=== PATIENT | male | born 1975 | race African-American/Black ===

== ENCOUNTER 2018-05-04 23:41 | Inpatient (IN) ==
[2018-05-04] MEDS ORDERED: Vancomycin Inj 1,000 MG in Sodium Chlor 0.9% Inj 250 ML IV.SIG STA (23:42)
[2018-05-04] MEDS ORDERED: Piperacil/Tazo 4.5 GM Premix 4.5 GM/100 ML BAG IV.SIG STA (23:42)
[2018-05-04] MEDS ORDERED: Acetaminophen 650 MG Supp RECTAL ONE (23:42)
[2018-05-04] MEDS ORDERED: Sod Chloride 0.9% Inj 700 ML IV.SIG SCH (23:45)
[2018-05-04] MEDS ORDERED: Sod Chloride 0.9% Inj 1,000 ML IV.SIG SCH (23:45)
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
[2018-05-05] MEDS: Sod Chloride 0.9% Inj 1,000 ML IV.SIG SCH ×2 (00:15→03:27)
[2018-05-05 00:18] LABS: Baso # (Auto) 0.1 th/mm3 (0.0-0.2); Baso % (Auto) 0.4 % (0.0-2.0); Hematocrit 46.3 % (39.0-51.0); Hemoglobin 15.2 gm/dL (13.0-17.0); Lymph # (Auto) 1.1 th/mm3 (1.0-4.8); Lymph % (Auto) 5.3 % (9.0-44.0); Mean Corpuscular HGB Conc 32.9 % (32.0-36.0); Mean Corpuscular Hemoglobin 30.8 pg (27.0-34.0); Mean Corpuscular Volume 93.7 fL (80.0-100.0); Mean Platelet Volume 8.4 fL (7.0-11.0); Mono % (Auto) 4.8 % (0.0-8.0); Neut # (Auto) 19.1 th/mm3 (1.8-7.7); Neut % (Auto) 89.5 % (16.0-70.0); Platelet Count 283 th/mm3 (150-450); Red Blood Count 4.94 mil/mm3 (4.50-5.90); Red Cell Distribution Width 14.6 % (11.6-17.2); White Blood Count 21.4 th/mm3 (4.0-11.0)
[2018-05-05 00:25] LABS: Albumin 4.5 g/dL (3.4-5.0); Anion Gap 10 meq/L (5-15); Aspartate Aminotransferase 128 U/L (15-37); Blood Urea Nitrogen 11 mg/dL (7-18); Calcium 8.9 mg/dL (8.5-10.1); Carbon Dioxide 18.6 meq/L (21.0-32.0); Chloride 108 meq/L (98-107); Glomerular Filtration Rate 51 mL/min (>89); Glucose,Random 101 mg/dL (74-106); Lipase 173 U/L (73-393); Potassium 4.3 meq/L (3.5-5.1); Sodium 137 meq/L (136-145)
[2018-05-05 00:28] LABS: Alanine Aminotransferase 58 U/L (12-78); Alkaline Phosphatase 116 U/L (45-117); Phosphorus 3.2 mg/dL (2.5-4.9); Total Protein 9.2 g/dL (6.4-8.2); Troponin I 0.06 ng/mL (0.02-0.05)
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
[2018-05-05] MEDS ORDERED: Etomidate Inj 40 MG/20 ML Vial IV.PUSH ONE ×2 (01:06→01:08)
[2018-05-05 01:10] LABS: Amphetamine Screen,Urine Neg (Neg); Barbiturate Screen,Urine Neg (Neg); Cannabinoid Screen,Urine Pos (Neg); Cocaine Screen,Urine Neg (Neg)
[2018-05-05 01:11] LABS: Opiate Screen,Urine Neg (Neg)
[2018-05-05 01:48] LABS: Creatine Kinase 9518 U/L (39-308)
[2018-05-05] MEDS: Propofol 1000 mg/100 ml Inj 1,000 MG/100 ML BOTTLE IV.CONT PRN ×3 (02:00→23:22)
[2018-05-05 02:08] LABS: CKMB Percent 0.2 % (0.0-4.0); Creatine Kinase MB 20.9 ng/mL (0.5-3.6)
[2018-05-05] MEDS ORDERED: Sod Chloride 0.9% Inj 1,000 ML IV.SIG SCH (02:30)
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
[2018-05-05 03:01] LABS: ABG Base Excess -6.4 mmol/L (-2-2); ABG PCO2 35 mmHg (38-42); ABG PO2 86 mmHg (61-120)
[2018-05-05] MEDS ORDERED: Midazolam 50 MG/50 ML Inj 50 MG/50 ML BAG IV.CONT ONE (03:31)
[2018-05-05] MEDS: Midazolam 50 MG/50 ML Inj 50 MG/50 ML BAG IV.CONT PRN ×3 (03:45→23:21)
[2018-05-05 03:59] LABS: Amorphous Sediment,Urine Occasional /hpf; Bilirubin,Urine Negative (Negative); Clarity,Urine Turbid (Clear); Color,Urine Yellow (Yellw/Straw); Glucose,Urine (UA) Negative (Negative); Leukocyte Esterase,Urine Negative (Negative); Nitrite,Urine Negative (Negative); Specific Gravity,Urine 1.021 (1.002-1.035)
--- NOTE | 2018-05-05 04:11 | CT ---
EXAM DATE: 05/05/2018 1:08 AM EDT AGE/SEX: 89 years / Male INDICATIONS: Respiratory distress. CLINICAL DATA: This is the patient's initial encounter. Patient reports that signs and symptoms have been present for 1 day and indicates a pain score of Nonresponsive. MEDICAL/SURGICAL HISTORY: Non-responsive. Non-responsive. RADIATION DOSE: 5.1 CTDI (mGy) ; Combined studies COMPARISON: No prior exams available for comparison. TECHNIQUE: Multiple contiguous axial images were obtained through the chest during bolus infusion of 96 ml Omnipaque 350 (iohexol) nonionic water-soluble contrast as a cumulative dose for multiple exa ms. Images were obtained in suspended respiration using multiple row detector helical technique. U sing automated exposure control and adjustment of the mA and/or kV according to patient size, radiati on dose was kept as low as reasonably achievable to obtain optimal diagnostic quality images. DICOM format image data is available electronically for review and comparison. FINDINGS: There is left lower lobe atelectasis versus contusion. There is no evidence of pneumothorax. No pulmo nary nodules are identified. Examination of the mediastinum demonstrates no abnormally enlarged lymph nodes by CT criteria. No axi llary or hilar abnormalities are identified. Coronary artery calcifications are not present. There is direct origin of the left vertebral artery from the arch which can be seen as a normal variation. Th ere is no evidence of acute fracture. CONCLUSION: Left lower lobe atelectasis versus contusion. There is no evidence of pneumothorax. Electronically signed by: Klever Tucker MD 05/05/2018 4:10 AM EDT
--- NOTE | 2018-05-05 04:13 | CT ---
EXAM DATE: 05/05/2018 1:08 AM EDT AGE/SEX: 89 years / Male INDICATIONS: Abdominal pain. CLINICAL DATA: This is the patient's initial encounter. Patient reports that signs and symptoms have been present for 1 day and indicates a pain score of Nonresponsive. MEDICAL/SURGICAL HISTORY: Non-responsive. Non-responsive. ORAL CONTRAST: No oral contrast ingested. RADIATION DOSE: 5.1 CTDI (mGy) ; Combined studies COMPARISON: No prior exams available for comparison. TECHNIQUE: Multiple contiguous axial images were obtained through the abdomen and pelvis following b olus infusion of 96 ml Omnipaque 350 (iohexol) nonionic water-soluble contrast as a cumulative dose for multiple exams. No oral contrast ingested. Using automated exposure control and adjustment of t he mA and/or kV according to patient size, radiation dose was kept as low as reasonably achievable to obtain optimal diagnostic quality images. DICOM format image data is available electronically for r eview and comparison. FINDINGS: There is left lower lobe atelectasis versus contusion. The liver and spleen are free of focal defects . The gallbladder and pancreas demonstrate no abnormality. The adrenal glands are normal. The kidneys demonstrate no evidence of solid renal mass or hydronephrosis. No free fluid or abdominal masses are identified. No para-aortic adenopathy is seen. Examination of the pelvis demonstrates no evidence of free fluid or pelvic mass. No abnormally enlarg ed inguinal or retroperitoneal lymph nodes are present. The bladder is unremarkable. CONCLUSION: No evidence of acute abdominal or pelvic process. No masses are identified. Electronically signed by: Klever Tucker MD 05/05/2018 4:12 AM EDT
--- NOTE | 2018-05-05 04:15 | CT ---
EXAM DATE: 05/05/2018 12:14 AM EDT AGE/SEX: 89 years / Male INDICATIONS: Altered mental status. Patient found unresponsive. CLINICAL DATA: This is the patient's initial encounter. Patient reports that signs and symptoms have been present for 1 day and indicates a pain score of Nonresponsive. MEDICAL/SURGICAL HISTORY: Non-responsive. Non-responsive. RADIATION DOSE: 61.36 CTDI (mGy) COMPARISON: No prior exams available for comparison. TECHNIQUE: CT of the head without contrast. Using automated exposure control and adjustment of the mA and/or kV according to patient size, radiation dose was kept as low as reasonably achievable to ob tain optimal diagnostic quality images. DICOM format image data is available electronically for revi ew and comparison. FINDINGS: Noncontrast axial head CT demonstrates the ventricles to be normal in size and configuration with a n ormal sulcal pattern. No acute intracranial hemorrhage, acute cortical infarction, mass or midline sh ift is seen. Posterior fossa structures are unremarkable. Bone windows are unremarkable. CONCLUSION: No evidence of acute intracranial pathology. No masses are identified. . Electronically signed by: Klever Tucker MD 05/05/2018 4:13 AM EDT
[2018-05-05] MEDS ORDERED: Bisacodyl 10 MG Supp RECTAL PRN (05:49)
[2018-05-05] MEDS ORDERED: Acetaminophen 325 MG Tablet PO PRN (05:49)
[2018-05-05] MEDS ORDERED: Morphine Inj 4 MG/ML Vial IV.PUSH PRN (05:49)
--- NOTE | 2018-05-05 05:55 | P.HPCC ---
History of Present Illness Primary Care Physician: UNKNOWN History of Present Illness: Middle-aged male arrives by EMS. Wellbeing check was called. FD knocked the front door down. Patient was found diaphoretic on his bed. EMS reports altered mental status on scene with GCS of 13 (E4, V4, M5). Pt unable to provide detailed history here 2/2 AMS. Axillary temp 101 per EMS. During my exam the patient had labored breathing and seemed to be unable to protect an airway and was intubated for an airway protection by ED attending. Inpatient Certification: I certify that the inpatient services were ordered in accordance with Medicare regulations governing the order. This includes certification that hospital inpatient services are reasonable and necessary and in the case of services not specified as inpatient-only under 42 CFR 419.22(n), that they are appropriately provided as inpatient services in accordance to with the 2-midnight benchmark under 43 CFR 412.3(e) Estimated Total Length of Stay (Days): 5 Plans for Post Hospital Care: Not yet determined Review of Systems unobtainable due to endotracheal tube, unobtainable due to mental status PMFSH - History History Provided By: Chief Informatics Officer / EMT - Medical / Surgical Hx Neg / Unobtainable Surgical History: Unable to Obtain - Medical History Medical History: Medical History (Last Reviewed 05/05/18 @ 13:16 by Soraya Bhatti) Seizure - Tobacco History Smoking Status: Cognitive impairment - Alcohol History How Often Do You Have a Drink Containing Alcohol: Unable to Obtain - Substance Use History Substance History: Unable to Obtain - Immunization History Tetanus Immunization: Unable to Assess Medications and Allergies Active Medications: Active Medications Acetaminophen (Tylenol) 650 mg PO Q6H PRN PRN Reason: PAIN 1-10 AND/OR FEVER >101F Al Hydroxide/Mg Hydroxide (Milk Of [place] Liq) 30 ml PO Q12H PRN PRN Reason: Mild Constipation Albuterol (Duoneb Neb (Prn)) 1 ampul NEB Q2HR NEB PRN PRN Reason: WHEEZING Albuterol (Duoneb Neb (Prn)) 1 ampul NEB Q6HR NEB ELMO Bisacodyl (Dulcolax Supp) 10 mg RECTAL DAILY PRN PRN Reason: SEVERE CONSITIPATION Chlorhexidine Gluconate (Chlorhexidine 2% Cloth) 3 pack TOPICAL DAILY@0400 [facility] Stop: 05/11/18 03:59 Chlorhexidine Gluconate (Chlorhexidine 2% Cloth) 3 pack TOPICAL DAILY@0400 PRN PRN Reason: Extra cloth needed Stop: 05/11/18 03:59 Enoxaparin Sodium (Lovenox Inj) 40 mg SQ Q24H ELMO Famotidine (Pepcid) 20 mg PO BID ELMO Famotidine (Pepcid Pf Inj) 20 mg IV.PUSH Q12HR ELMO Famotidine (Pepcid Pf Inj) 20 mg IV.PUSH Q12HR ELMO Sodium Chloride (Ns Inj) 1,000 mls @ 0 mls/hr IV.SIG .Q0M ELMO Last Infusion: 05/05/18 04:35 Dose: Infused Sodium Chloride (Ns Inj) 700 mls @ 0 mls/hr IV.SIG .Q0M ELMO Last Infusion: 05/05/18 01:40 Dose: Infused Sodium Chloride (Ns Inj) 1,000 mls @ 0 mls/hr IV.SIG .Q0M ELMO Last Infusion: 05/05/18 01:15 Dose: Infused Propofol (Diprivan 1000 Mg/100 Ml Inj) 1,000 mg in 100 mls @ 1.905 mls/hr IV.CONT TITRATE PRN; Protocol PRN Reason: Per Protocol Last Titration: 05/05/18 02:28 Dose: 50 mcg/kg/min, 19.05 mls/hr Sodium Chloride (Ns Inj) 1,000 mls @ 0 mls/hr IV.SIG BOLUS ELMO Stop: 05/06/18 02:31 Midazolam HCl (Versed Inj) 50 mg in 50 mls @ 2 mls/hr IV.CONT TITRATE PRN; Protocol PRN Reason: Per Protocol Last Titration: 05/05/18 04:14 Dose: 4 mg/hr, 4 mls/hr Sodium Chloride (Ns Inj) 1,000 mls @ 154 mls/hr IV.CONT .Q6H30M ELMO Lactulose (Lactulose Liq) 30 ml PO DAILY PRN PRN Reason: SEVERE CONSITIPATION Lorazepam (Ativan Inj) 1 mg IV.PUSH Q1H PRN PRN Reason: Agitation/sedation Miscellaneous Medication () 1 each OROPHARYNG 0000,0400,1200,1600 ELMO Ondansetron HCl (Zofran Inj) 4 mg IV.PUSH Q6H PRN PRN Reason: NAUSEA OR VOMITING Allergies Allergy/AdvReac Type Severity Reaction Status Date / Time No Allergy Information Allergy Unverified 05/04/18 23:42 Available Home Medications Medication Instructions Recorded Confirmed Type Unable to Obtain Home Meds 05/05/18 05/05/18 History Results - Labs CBC & Chem 7: 05/05/18 11:15 05/05/18 11:15 Labs: Short CBC 05/04/18 Range/Units 23:50 WBC 21.4 H (4.0-11.0) th/mm3 Hgb 15.2 (13.0-17.0) gm/dL Hct 46.3 (39.0-51.0) % Plt Count 283 (150-450) th/mm3 BMP 05/04/18 23:50 Sodium 137 Potassium 4.3 Chloride 108 H Carbon Dioxide 18.6 L BUN 11 Creatinine 1.23 Calcium 8.9 Cardiac Enzymes 05/04/18 Range/Units 23:50 Total Creatine Kinase 9518 H (39-308) U/L CK-MB (CK-2) 20.9 H (0.5-3.6) ng/mL Troponin I 0.06 H (0.02-0.05) ng/mL Liver Function 05/04/18 Range/Units 23:50 Total Bilirubin 0.6 (0.2-1.0) mg/dL AST 128 H (15-37) U/L ALT 58 (12-78) U/L Alkaline Phosphatase 116 (45-117) U/L Albumin 4.5 (3.4-5.0) g/dL Urine 05/05/18 Range/Units 00:30 Urine Color Yellow (Yellw/Straw) Urine Clarity Turbid H (Clear) Urine pH 5.0 (5.0-8.5) Ur Specific [place] 1.021 (1.002-1.035) Urine Protein 100 H (Neg-Trace) mg/dL Urine Glucose (UA) Negative (Negative) mg/dL - Imaging Impressions Chest X-Ray 05/04/18 23:43 CONCLUSION: No acute cardiopulmonary disease. Head CT 05/05/18 00:00 CONCLUSION: No evidence of acute intracranial pathology. No masses are identified. . Abdomen/Pelvis CT 05/05/18 00:59 CONCLUSION: No evidence of acute abdominal or pelvic process. No masses are identified. Chest CT 05/05/18 00:59 CONCLUSION: Left lower lobe atelectasis versus contusion. There is no evidence of pneumothorax. Chest X-Ray 05/05/18 01:30 CONCLUSION: Satisfactory position of endotracheal tube as above. Left lower lobe atelectasis versus contusion Exam Vital signs: Vital Signs 05/04/18 23:43 05/05/18 00:50 05/05/18 00:58 Temperature 102.1 F H 99 F Pulse Rate 116 H 116 H 123 H Respiratory Rate 20 20 Blood Pressure 144/71 H 145/68 H Pulse Oximetry 100 100 100 05/05/18 01:22 05/05/18 05:08 Temperature 101.1 F H Pulse Rate 96 H Respiratory Rate 14 16 Blood Pressure 130/65 Pulse Oximetry 100 100 Intake & Output 05/04/18 05/04/18 05/05/18 06:59 18:59 06:59 Intake Total 4150 / 4150 Balance 4150 / 4150 Weight 63.503 kg Intake: IV 4150 / 4150 Zosyn 4.5 GM Premix 4.5 gm In 100 / 100 100 ml @ 200 mls/hr IV.SIG STAT STA Rx#:[id number] NS Inj 1,000 ML @ Wide Open IV. 3700 / 3700 SIG .Q0M ELMO Rx#:[id number] Vancomycin Inj 1,000 MG In NS 250 / 250 Inj 250 ML @ 250 mls/hr IV.SIG STAT STA Rx#:[id number] Rocephin Inj 1,000 MG In NS Inj 100 / 100 100 ML @ 200 mls/hr IV.SIG ONCE ONE Rx#:[id number] - Constitutional moderate distress, somnolent, obtunded - Routine HEENT Exam Head: Present: normocephalic, atraumatic Eye: Present: PERRL ENT: Present: mucous membranes moist - Routine Neck Exam Present: supple. Absent: JVD, carotid bruit - Routine Chest/Breast/Axilla Exam Chest wall: Absent: tenderness, mass, pacemaker - Routine Respiratory Exam Present: patient mechanically ventilated, rhonchi, crackles. Absent: stridor, wheezes - Routine Cardiovascular Exam Present: RRR, S1, S2 - Routine Abdominal Exam Present: soft, normoactive bowel sounds. Absent: tenderness, distended - Routine Extremities Exam Absent: cyanosis, clubbing, edema - Routine Skin Exam Present: intact. Absent: cyanosis, erythema - Routine Neurological Exam Present: altered mental status, moving all extremities Septic Shock Reassessment Septic shock perfusion: reassessment completed Caprini VTE Risk Assessment Caprini VTE Risk Assessment: Moderate/High Risk (score >= 2) Caprini Risk Assessment Model: Point Value = 1 Point Value = 2 Point Value = 3 Point Value = 5 Age 41-60 Minor surgery BMI > 25 kg/m2 Swollen legs Varicose veins or History of unexplained or recurrent spontaneous Oral contraceptives or hormone replacement Sepsis (< 1 month) Serious lung disease, including pneumonia (< 1 month) Abnormal pulmonary function Acute myocardial infarction Congestive heart failure (< 1 month) History of inflammatory bowel disease Medical patient at bed rest Age 61-74 Arthroscopic surgery Major open surgery (> 45 min) Laparoscopic surgery (> 45 min) Malignancy Confined to bed (> 72 hours) Immobilizing plaster cast Central venous access Age >= 75 History of VTE Family history of VTE Factor V Leiden Prothrombin [id number] Lupus anticoagulant Anticardiolipin antibodies Elevated serum homocysteine Heparin-induced thrombocytopenia Other congenital or acquired thrombophilia Stroke (< 1 month) Elective arthroplasty Hip, pelvis, or leg fracture Acute spinal cord injury (< 1 month) Prophylaxis Regimen: Total Risk Factor Score Risk Level Prophylaxis Regimen 0-1 Low Early ambulation 2 Moderate Order ONE of the following: *Sequential Compression Device (SCD) *Heparin 5000 units SQ BID 3-4 Higher Order ONE of the following medications: *Heparin 5000 units SQ TID *Enoxaparin/Lovenox 40 mg SQ daily (WT < 150 kg, CrCl > 30 mL/min) *Enoxaparin/Lovenox 30 mg SQ daily (WT < 150 kg, CrCl > 10-29 mL/min) *Enoxaparin/Lovenox 30 mg SQ BID (WT < 150 kg, CrCl > 30 mL/min) AND/OR *Sequential Compression Device (SCD) 5 or more Highest Order ONE of the following medications: *Heparin 5000 units SQ TID (Preferred with Epidurals) *Enoxaparin/Lovenox 40 mg SQ daily (WT < 150 kg, CrCl > 30 mL/min) *Enoxaparin/Lovenox 30 mg SQ daily (WT < 150 kg, CrCl > 10-29 mL/min) *Enoxaparin/Lovenox 30 mg SQ BID (WT < 150 kg, CrCl > 30 mL/min) AND *Sequential Compression Device (SCD) Assessment and Plan - Assessment and Plan Plan: Respiratory failure -Intubated for an airway protection -No weaning until neurologically improved -Vent bundle -DuoNeb's as needed Pneumonia -Community-acquired -Zosyn/azithromycin -Follow-up cultures and de-escalate per sensitivity Altered mental status -SIRS -CT head negative -Drug screen positive only 4 cannabis -LP serology pending DVT GI prophylaxis -Teds SCDs -Subcu heparin -Pepcid 35 minutes of critical care
[2018-05-05] MEDS: Piperacil/Tazo 4.5 GM Premix 4.5 GM/100 ML BAG IV.SIG SCH ×4 (06:00→23:20)
[2018-05-05] MEDS ORDERED: Sod Chloride 0.9% Inj 1,000 ML IV.CONT SCH (06:00)
[2018-05-05] MEDS: Enoxaparin Inj 40 MG/0.4 ML Syringe SQ SCH (06:13)
[2018-05-05] MEDS: Azithromycin Inj 500 MG in Sodium Chlor 0.9% Inj 250 ML IV.SIG SCH (06:28)
[2018-05-05 07:12] LABS: Lymphocytes, CSF 0 %; Monocytes,CSF 1 %; Neutrophils,CSF 99 %; RBC on Tube 4 0 /mm3
[2018-05-05] MEDS ORDERED: Famotidine PF Inj 20 MG/2 ML Vial IV.PUSH SCH ×2 (09:00)
[2018-05-05] MEDS: Senna/Docusate Sodium 8.6/50 MG Tablet PO SCH ×2 (10:06→20:44)
[2018-05-05] MEDS: Chlorhexidine 0.12% Oral Kit 15 ML UDC OROPHARYNG SCH ×2 (10:06→20:44)
[2018-05-05] MEDS: Famotidine 20 MG Tablet PO SCH ×2 (10:06→20:44)
--- NOTE | 2018-05-05 11:19 | MB ---
cc: Coni Pike MD DATE: 05/05/2018 REASON FOR CONSULTATION: Change in mental status, possible meningitis. HISTORY OF PRESENT ILLNESS: This is a middle-aged male who comes in after being found down after a wellness check, brought in, intubated for airway protection, found to have axillary temperature of 101 per EMS. He had some labored breathing, hence intubated. PAST MEDICAL HISTORY: Really unknown, but we did find a picture, driver lifter of sanitation truck's license, and his name apparently is Js Portillo with date of 1975. He has a remote history of seizures. Other than that, we are unclear as far as other medical issues. PHYSICAL EXAMINATION: VITAL SIGNS: His temperature is currently 100.4, pulse 98, respiratory rate 16, blood pressure 128/69, saturating at 100%, FiO2 of 60%. GENERAL: Sedated. Pinpoint pupils. No response to noxious stimuli. No withdrawal to painful stimuli, does not follow any commands purposefully. LABORATORY DATA: Reviewed. CK is 9518, TSH is normal. CO2 is 18.6, sodium 137, AST 128, ALT 58. CBC: White count 21.4, 89.5% neutrophils. Urine: Turbid, cultures not indicated. LP shows 539 white cells in tube 4, 46.6 protein. PCR DNA for herpes is pending. Serum meningitides is pending as well. Serology is pending. Tox screen is positive for cannabinoids. Microbiology cultures are pending. His Gram stain shows many white cells, no organisms. ASSESSMENT AND PLAN: Status post change in mental status, possible meningitis, history of possible seizure. The patient just had an EEG. We will get that report. I am going to put him on Keppra 500 mg twice a day IV. Continue antibiotics as doing. Currently, he is on Zosyn. He was given Rocephin. He was also given vancomycin. We will defer any treatment options as well as antibiotic change to infectious disease. We will continue current care per neurology and make further recommendations as ordered. Going back into an old chart, he had a normal EEG and MRI back in 09/2016. Coni Pike MD DF/ts , 10:55 AM , 11:04 AM
[2018-05-05 11:47] LABS: Baso % (Auto) 0.3 % (0.0-2.0); Eos % (Auto) 0.1 % (0.0-4.0); Hematocrit 39.9 % (39.0-51.0); Hemoglobin 13.3 gm/dL (13.0-17.0); Lymph # (Auto) 1.4 th/mm3 (1.0-4.8); Lymph % (Auto) 11.8 % (9.0-44.0); Mean Corpuscular HGB Conc 33.3 % (32.0-36.0); Mean Corpuscular Hemoglobin 31.2 pg (27.0-34.0); Mean Corpuscular Volume 93.7 fL (80.0-100.0); Mean Platelet Volume 8.4 fL (7.0-11.0); Mono # (Auto) 0.8 th/mm3 (0.0-0.9); Mono % (Auto) 6.4 % (0.0-8.0); Neut % (Auto) 81.4 % (16.0-70.0); Platelet Count 190 th/mm3 (150-450); Red Blood Count 4.25 mil/mm3 (4.50-5.90); Red Cell Distribution Width 14.9 % (11.6-17.2); White Blood Count 12.2 th/mm3 (4.0-11.0)
[2018-05-05] MEDS: Sodium Bicarbonate 8.4% Inj 150 MEQ in Water for Inj, Sterile 850 ML IV.CONT SCH ×3 (12:04→23:21)
[2018-05-05 12:10] LABS: Alanine Aminotransferase 88 U/L (12-78); Albumin 3.2 g/dL (3.4-5.0); Anion Gap 8 meq/L (5-15); Aspartate Aminotransferase 377 U/L (15-37); Blood Urea Nitrogen 7 mg/dL (7-18); Calcium 7.5 mg/dL (8.5-10.1); Carbon Dioxide 18.8 meq/L (21.0-32.0); Chloride 113 meq/L (98-107); Glomerular Filtration Rate Greater Than 89 mL/min (>89); Glucose,Random 76 mg/dL (74-106); Magnesium 2.1 mg/dL (1.5-2.5); Phosphorus 2.3 mg/dL (2.5-4.9); Potassium 3.4 meq/L (3.5-5.1); Sodium 140 meq/L (136-145)
[2018-05-05 12:13] LABS: Alkaline Phosphatase 83 U/L (45-117); Total Protein 7.3 g/dL (6.4-8.2)
[2018-05-05] MEDS: Oral Hygiene Kit OROPHARYNG SCH ×3 (13:14→23:20)
--- NOTE | 2018-05-05 14:11 | ECG ---
Date Performed: 05/05/2018 Time Performed: 05:29:55 PTAGE: 89 years EKG: Sinus rhythm VOLTAGE CRITERIA FOR LVH ABNORMAL ECG NO PREVIOUS TRACING DOCTOR: Twin Yadav M.D. Interpretating Date/Time 05/05/2018 14:10:16
--- NOTE | 2018-05-05 21:32 | MG ---
cc: Maury Kapoor MD EEG RECORD: [id number] Intubated, on Diprivan, Versed. Delta with theta spindle bursts occurring, high frequency artifact bilateral frontotemporal region. Occasional frontal sharp transients. Limited driving with photic stimulation, sharply contoured theta bursts with inter burst 1-2 Hz delta activity 230 microvolts. Single lead EKG showing sinus rhythm. INTERPRETATION: Moderate encephalopathy. No active seizures. Clinical correlation. Maury Kapoor MD MG/ct/do , 08:27 PM , 08:30 PM
[2018-05-06] MEDS: Oral Hygiene Kit OROPHARYNG SCH ×4 (03:04→23:07)
[2018-05-06] MEDS: Chlorhexidine Gluconate 2% 1 Pack (2 Cloths) TOPICAL SCH (03:04)
[2018-05-06] MEDS ORDERED: Chlorhexidine Gluconate 2% 1 Pack (2 Cloths) TOPICAL PRN (04:00)
[2018-05-06 04:49] LABS: Baso # (Auto) 0.1 th/mm3 (0.0-0.2); Baso % (Auto) 0.5 % (0.0-2.0); Eos % (Auto) 0.2 % (0.0-4.0); Hematocrit 37.1 % (39.0-51.0); Lymph # (Auto) 1.1 th/mm3 (1.0-4.8); Mean Corpuscular HGB Conc 35.2 % (32.0-36.0); Mean Corpuscular Hemoglobin 31.8 pg (27.0-34.0); Mean Corpuscular Volume 90.4 fL (80.0-100.0); Mean Platelet Volume 8.7 fL (7.0-11.0); Mono # (Auto) 0.6 th/mm3 (0.0-0.9); Mono % (Auto) 5.6 % (0.0-8.0); Neut # (Auto) 8.3 th/mm3 (1.8-7.7); Neut % (Auto) 82.7 % (16.0-70.0); Platelet Count 204 th/mm3 (150-450); Red Cell Distribution Width 14.2 % (11.6-17.2); White Blood Count 10.1 th/mm3 (4.0-11.0)
[2018-05-06 04:58] LABS: Activated Partial Thrombo Time 27.2 sec (24.3-30.1); INR 1.1 Ratio; Prothrombin Time 11.2 sec (9.8-11.6)
[2018-05-06 05:20] LABS: Anion Gap 11 meq/L (5-15)
[2018-05-06] MEDS: Propofol 1000 mg/100 ml Inj 1,000 MG/100 ML BOTTLE IV.CONT PRN (05:34)
[2018-05-06] MEDS: Azithromycin Inj 500 MG in Sodium Chlor 0.9% Inj 250 ML IV.SIG SCH (05:35)
[2018-05-06] MEDS: Enoxaparin Inj 40 MG/0.4 ML Syringe SQ SCH (05:35)
[2018-05-06] MEDS: Sodium Bicarbonate 8.4% Inj 150 MEQ in Water for Inj, Sterile 850 ML IV.CONT SCH ×3 (06:08→20:31)
[2018-05-06 06:12] LABS: Alkaline Phosphatase 72 U/L (45-117); Blood Urea Nitrogen 6 mg/dL (7-18); Calcium 7.4 mg/dL (8.5-10.1); Carbon Dioxide 25.6 meq/L (21.0-32.0); Chloride 105 meq/L (98-107); Creatine Kinase 68316 U/L (39-308); Glucose,Random 64 mg/dL (74-106); Phosphorus 2.1 mg/dL (2.5-4.9); Sodium 142 meq/L (136-145); Total Protein 6.6 g/dL (6.4-8.2)
[2018-05-06 06:30] LABS: Alanine Aminotransferase 102 U/L (12-78); Aspartate Aminotransferase 416 U/L (15-37); Creatine Kinase MB 15.7 ng/mL (0.5-3.6); Glomerular Filtration Rate Greater Than 89 mL/min (>89)
[2018-05-06 06:32] LABS: Potassium 2.8 meq/L (3.5-5.1)
[2018-05-06] MEDS: Piperacil/Tazo 4.5 GM Premix 4.5 GM/100 ML BAG IV.SIG SCH ×4 (06:50→23:45)
[2018-05-06] MEDS ORDERED: Potassium Chloride 25 MEQ Effervescent Tablet PO PRN (08:36)
[2018-05-06] MEDS ORDERED: Magnesium Sulfate Inj 4 GM in Sodium Chlor 0.9% Inj 92 ML IV.SIG PRN (08:36)
[2018-05-06] MEDS ORDERED: Sodium Phosphate Inj 30 MMOL in Sodium Chlor 0.9% Inj 250 ML IV.SIG PRN (08:36)
[2018-05-06] MEDS ORDERED: Magnesium Oxide 400 MG Tablet PO PRN (08:36)
[2018-05-06] MEDS ORDERED: Potassium Phosphate 500 MG Soluble Tablet PO PRN (08:36)
[2018-05-06] MEDS ORDERED: Potassium Chlor 40 mEq Premix 40 MEQ/100 ML PIGGYBACK IV.SIG PRN ×2 (08:36)
[2018-05-06] MEDS ORDERED: Magnesium Sulfate Inj 2 GM in Sodium Chlor 0.9% Inj 96 ML IV.SIG PRN (08:36)
[2018-05-06] MEDS ORDERED: Potassium Phosphate Inj 30 MMOL in Sodium Chlor 0.9% Inj 250 ML IV.SIG PRN (08:36)
[2018-05-06] MEDS ORDERED: Potassium Chlor 20 mEq Premix 20 MEQ/100 ML PIGGYBACK IV.SIG PRN (08:36)
--- NOTE | 2018-05-06 08:36 | P.PNCC ---
Subjective Subjective Remarks/Hospital Course: 05/05: Middle-aged male arrives by EMS. Wellbeing check was called. FD knocked the front door down. Patient was found diaphoretic on his bed. EMS reports altered mental status on scene with GCS of 13 (E4, V4, M5). Pt unable to provide detailed history here 2/2 AMS. Axillary temp 101 per EMS. In ER the patient had labored breathing and seemed to be unable to protect an airway and was intubated for an airway protection by ED attending. 05/06: Patient remains sedated, orally intubated on mechanical vent LP yesterday morning which is abnormal with WBCs 500s. Evaluated by neurology and ID yesterday. Worsening rhabdomyolysis noted with CPK greater than 65,000 today. Continues to make urine. EEG done yesterday did not reveal any seizure activity. Objective Vital Signs / I&O: Vital Signs 05/05/18 08:50 05/05/18 09:00 05/05/18 10:00 Temperature 99.3 F 99.0 F Pulse Rate 78 68 Respiratory Rate 16 16 16 Blood Pressure 129/71 131/78 Pulse Oximetry 100 100 100 05/05/18 11:00 05/05/18 12:00 05/05/18 12:21 Temperature 99.0 F 99.1 F Pulse Rate 68 Respiratory Rate 16 16 16 Blood Pressure 142/82 H 136/78 Pulse Oximetry 100 100 100 05/05/18 13:00 05/05/18 14:00 05/05/18 15:00 Temperature 98.4 F 98.0 F 98.7 F Pulse Rate Respiratory Rate 16 16 16 Blood Pressure 136/78 151/79 H 136/72 Pulse Oximetry 100 100 100 05/05/18 16:00 05/05/18 17:00 05/05/18 17:06 Temperature 97.9 F Pulse Rate Respiratory Rate 16 16 16 Blood Pressure 130/76 137/68 Pulse Oximetry 100 100 100 05/05/18 18:00 05/05/18 19:00 05/05/18 19:15 Temperature 97.2 F L 97.3 F L Pulse Rate 53 L 57 L Respiratory Rate 16 16 16 Blood Pressure 132/78 144/80 H 131/76 Pulse Oximetry 100 100 100 05/05/18 19:30 05/05/18 19:45 05/05/18 20:00 Temperature 97.2 F L 97.0 F L 97.0 F L Pulse Rate 55 L 52 L 51 L Respiratory Rate 16 16 16 Blood Pressure 146/81 H 150/79 H 148/80 H Pulse Oximetry 100 100 100 05/05/18 20:15 05/05/18 20:28 05/05/18 20:30 Temperature 97.0 F L 97.0 F L Pulse Rate 52 L 52 L Respiratory Rate 16 16 16 Blood Pressure 144/79 H 139/83 Pulse Oximetry 100 100 100 05/05/18 20:32 05/05/18 20:45 05/05/18 21:00 Temperature 97.0 F L 97.0 F L Pulse Rate 54 L 54 L 52 L Respiratory Rate 16 24 25 H Blood Pressure 133/70 165/76 H Pulse Oximetry 100 100 05/05/18 21:15 05/05/18 21:30 05/05/18 21:45 Temperature 97.0 F L 97.5 F L 98.2 F Pulse Rate 82 116 H 93 H Respiratory Rate 23 43 H 24 Blood Pressure 159/76 H 168/80 H 142/87 H Pulse Oximetry 100 94 L 98 05/05/18 22:00 05/05/18 22:15 05/05/18 22:30 Temperature 98.8 F 99.1 F 99.3 F Pulse Rate 74 82 85 Respiratory Rate 16 18 16 Blood Pressure 140/79 138/78 123/65 Pulse Oximetry 99 100 100 05/05/18 22:45 05/05/18 23:00 05/05/18 23:15 Temperature 99.0 F 98.6 F 98.4 F Pulse Rate 82 82 66 Respiratory Rate 16 16 16 Blood Pressure 119/64 116/58 L 127/63 Pulse Oximetry 99 99 99 05/05/18 23:30 05/05/18 23:45 05/05/18 23:56 Temperature 98.4 F 98.4 F Pulse Rate 69 64 Respiratory Rate 16 16 16 Blood Pressure 126/70 149/67 H Pulse Oximetry 99 100 99 05/06/18 00:00 05/06/18 00:15 05/06/18 00:30 Temperature 98.4 F 98.6 F 98.6 F Pulse Rate 67 68 66 Respiratory Rate 16 16 16 Blood Pressure 137/106 H 137/70 132/71 Pulse Oximetry 99 99 99 05/06/18 00:45 05/06/18 01:00 05/06/18 04:00 Temperature 98.8 F 99.0 F 99.0 F Pulse Rate 65 64 86 Respiratory Rate 16 16 16 Blood Pressure 137/76 135/73 127/69 Pulse Oximetry 99 99 97 05/06/18 04:20 05/06/18 08:00 Temperature Pulse Rate 82 66 Respiratory Rate 16 16 Blood Pressure Pulse Oximetry 98 100 Intake & Output 05/05/18 05/06/18 05/06/18 18:59 06:59 18:59 Intake Total 355 / 355 3205 / 3205 150 / 150 Output Total 1125 / 1125 Balance 355 / 355 2080 / 2080 150 / 150 Weight 58.3 kg Intake: IV 355 / 355 3205 / 3205 150 / 150 Versed Inj 50 mg In 50 ml @ 2 50 / 50 50 / 50 50 / 50 MG/HR 2 mls/hr IV.CONT TITRATE PRN Rx#:[id number] Diprivan 1000 mg/100 ml Inj 1, 100 / 100 200 / 200 000 mg In 100 ml @ 5 MCG/KG/MIN 1.905 mls/hr IV.CONT TITRATE PRN Rx#:[id number] Sodium Bicarbonate 8.4% Inj 150 1950 / 1950 MEQ In Sterile Water for Inj 850 ML @ 150 mls/hr IV.CONT . Q6H40M ELMO Rx#:[id number] Azithromycin Inj 500 MG In NS 500 / 500 Inj 250 ML @ 250 mls/hr IV.SIG Q24H ELMO Rx#:[id number] Zosyn 4.5 GM Premix 4.5 gm In 100 / 100 200 / 200 100 / 100 100 ml @ 200 mls/hr IV.SIG Q6H ELMO Rx#:[id number] Rocephin Inj 2,000 MG In NS Inj 200 / 200 100 ML @ 200 mls/hr IV.SIG Q12H ELMO Rx#:[id number] Keppra Inj 500 MG In NS Inj 100 105 / 105 105 / 105 ML @ 400 mls/hr IV.SIG Q12H ELMO Rx#:[id number] Output: Urine Amount (Catheter) 1125 / 1125 Indwelling Temp Sensing 1125 / 1125 Catheter Result Diagrams: 05/06/18 04:32 05/06/18 04:32 Other Results: Laboratory Results - last 24 hr 05/05/18 05/05/18 05/05/18 07:30 11:15 11:15 WBC 12.2 H RBC 4.25 L Hgb 13.3 Hct 39.9 MCV 93.7 MCH 31.2 MCHC 33.3 RDW 14.9 Plt Count 190 D MPV 8.4 Neut % (Auto) 81.4 H Lymph % (Auto) 11.8 [place] % (Auto) 6.4 Eos % (Auto) 0.1 Baso % (Auto) 0.3 Neut # (Auto) 10.0 H Lymph # (Auto) 1.4 [place] # (Auto) 0.8 Eos # (Auto) 0.0 Baso # (Auto) 0.0 WBC Differential . Differential Comment Auto diff final PT INR APTT Sodium 140 Potassium 3.4 L D Chloride 113 H Carbon Dioxide 18.8 L Anion Gap 8 BUN 7 Creatinine 0.79 Estimated GFR Greater than 89 Random Glucose 76 Calcium 7.5 L D Prot Corrected Calcium Phosphorus 2.3 L Magnesium 2.1 Total Bilirubin 0.6 AST 377 H ALT 88 H Alkaline Phosphatase 83 Total Creatine Kinase CK-MB (CK-2) CK-MB (CK-2) % Total Protein 7.3 D Albumin 3.2 L D Nasal Screen MRSA (PCR) Not detected 05/06/18 05/06/18 05/06/18 04:32 04:32 04:32 WBC 10.1 RBC 4.10 L Hgb 13.0 Hct 37.1 L MCV 90.4 MCH 31.8 MCHC 35.2 RDW 14.2 Plt Count 204 MPV 8.7 Neut % (Auto) 82.7 H Lymph % (Auto) 11.0 [place] % (Auto) 5.6 Eos % (Auto) 0.2 Baso % (Auto) 0.5 Neut # (Auto) 8.3 H Lymph # (Auto) 1.1 [place] # (Auto) 0.6 Eos # (Auto) 0.0 Baso # (Auto) 0.1 WBC Differential . Differential Comment Auto diff final PT 11.2 INR 1.1 APTT 27.2 Sodium 142 Potassium 2.8 L* Chloride 105 D Carbon Dioxide 25.6 Anion Gap 11 BUN 6 L Creatinine 0.81 Estimated GFR Greater than 89 Random Glucose 64 L Calcium 7.4 L* Prot Corrected Calcium 7.7 L Phosphorus 2.1 L Magnesium 2.0 Total Bilirubin 0.7 AST 416 H ALT 102 H Alkaline Phosphatase 72 Total Creatine Kinase 61073 H CK-MB (CK-2) 15.7 H CK-MB (CK-2) % 0.0 Total Protein 6.6 D Albumin 3.0 L Nasal Screen MRSA (PCR) Imaging: Chest X-Ray 05/04/18 23:43 CONCLUSION: No acute cardiopulmonary disease. Head CT 05/05/18 00:00 CONCLUSION: No evidence of acute intracranial pathology. No masses are identified. . Abdomen/Pelvis CT 05/05/18 00:59 CONCLUSION: No evidence of acute abdominal or pelvic process. No masses are identified. Chest CT 05/05/18 00:59 CONCLUSION: Left lower lobe atelectasis versus contusion. There is no evidence of pneumothorax. Chest X-Ray 05/05/18 01:30 CONCLUSION: Satisfactory position of endotracheal tube as above. Left lower lobe atelectasis versus contusion Objective Remarks: HEENT/ Neuro: Sedated, pupils bilaterally constricted reactive, orally intubated , Pallor present, no icterus, tongue/ mucosa moist Neck: No JVD Chest/Pulm: on mech vent, good air entry bilaterally, no wheezing or crackles CVS: S1-S2 regular, no murmur GI/abdomen: soft, nontender, bowel sounds sluggish Extremities: warm bilaterally, no edema Assessment and Plan - Assessment and Plan Plan: Acute Respiratory failure -Intubated for an airway protection -No weaning until neurologically improved -Vent bundle -DuoNeb's as needed Pneumonia -Community-acquired -Zosyn/azithromycin -Follow-up cultures and de-escalate per sensitivity Encephalopathy -Possible meningitis -Abnormal LP noted. Serologies pending. Neurology and ID following. -CT head negative -Drug screen positive only 4 cannabis -Daily sedation vacation -Continue empiric antibiotic coverage with IV Rocephin/Zosyn/azithromycin per ID. Rhabdomyolysis -IV hydration, strict intake output, monitor and replete electrodes, follow BN creatinine. Continue bicarb drip to alkalinize urine. GI: -If not extubated will, we will initiate tube feeds and advance to goal as tolerated. DVT GI prophylaxis -Teds SCDs -Subcu heparin -Pepcid 35 minutes of critical care
[2018-05-06] MEDS: Senna/Docusate Sodium 8.6/50 MG Tablet PO SCH ×2 (08:59→20:14)
[2018-05-06] MEDS: Famotidine 20 MG Tablet PO SCH ×2 (08:59→20:14)
[2018-05-06] MEDS: Chlorhexidine 0.12% Oral Kit 15 ML UDC OROPHARYNG SCH ×2 (09:00→19:26)
--- NOTE | 2018-05-06 09:06 | P.PN ---
Subjective Interval history: intubated sedated Physical Exam Vital signs: Vital Signs 05/05/18 10:00 05/05/18 11:00 05/05/18 12:00 Temperature 99.0 F 99.0 F 99.1 F Pulse Rate 68 68 Respiratory Rate 16 16 16 Blood Pressure 131/78 142/82 H 136/78 Pulse Oximetry 100 100 100 05/05/18 12:21 05/05/18 13:00 05/05/18 14:00 Temperature 98.4 F 98.0 F Pulse Rate Respiratory Rate 16 16 16 Blood Pressure 136/78 151/79 H Pulse Oximetry 100 100 100 05/05/18 15:00 05/05/18 16:00 05/05/18 17:00 Temperature 98.7 F 97.9 F Pulse Rate Respiratory Rate 16 16 16 Blood Pressure 136/72 130/76 137/68 Pulse Oximetry 100 100 100 05/05/18 17:06 05/05/18 18:00 05/05/18 19:00 Temperature 97.2 F L Pulse Rate 53 L Respiratory Rate 16 16 16 Blood Pressure 132/78 144/80 H Pulse Oximetry 100 100 100 05/05/18 19:15 05/05/18 19:30 05/05/18 19:45 Temperature 97.3 F L 97.2 F L 97.0 F L Pulse Rate 57 L 55 L 52 L Respiratory Rate 16 16 16 Blood Pressure 131/76 146/81 H 150/79 H Pulse Oximetry 100 100 100 05/05/18 20:00 05/05/18 20:15 05/05/18 20:28 Temperature 97.0 F L 97.0 F L Pulse Rate 51 L 52 L Respiratory Rate 16 16 16 Blood Pressure 148/80 H 144/79 H Pulse Oximetry 100 100 100 05/05/18 20:30 05/05/18 20:32 05/05/18 20:45 Temperature 97.0 F L 97.0 F L Pulse Rate 52 L 54 L 54 L Respiratory Rate 16 16 24 Blood Pressure 139/83 133/70 Pulse Oximetry 100 100 05/05/18 21:00 05/05/18 21:15 05/05/18 21:30 Temperature 97.0 F L 97.0 F L 97.5 F L Pulse Rate 52 L 82 116 H Respiratory Rate 25 H 23 43 H Blood Pressure 165/76 H 159/76 H 168/80 H Pulse Oximetry 100 100 94 L 05/05/18 21:45 05/05/18 22:00 05/05/18 22:15 Temperature 98.2 F 98.8 F 99.1 F Pulse Rate 93 H 74 82 Respiratory Rate 24 16 18 Blood Pressure 142/87 H 140/79 138/78 Pulse Oximetry 98 99 100 05/05/18 22:30 05/05/18 22:45 05/05/18 23:00 Temperature 99.3 F 99.0 F 98.6 F Pulse Rate 85 82 82 Respiratory Rate 16 16 16 Blood Pressure 123/65 119/64 116/58 L Pulse Oximetry 100 99 99 05/05/18 23:15 05/05/18 23:30 05/05/18 23:45 Temperature 98.4 F 98.4 F 98.4 F Pulse Rate 66 69 64 Respiratory Rate 16 16 16 Blood Pressure 127/63 126/70 149/67 H Pulse Oximetry 99 99 100 05/05/18 23:56 05/06/18 00:00 05/06/18 00:15 Temperature 98.4 F 98.6 F Pulse Rate 67 68 Respiratory Rate 16 16 16 Blood Pressure 137/106 H 137/70 Pulse Oximetry 99 99 99 05/06/18 00:30 05/06/18 00:45 05/06/18 01:00 Temperature 98.6 F 98.8 F 99.0 F Pulse Rate 66 65 64 Respiratory Rate 16 16 16 Blood Pressure 132/71 137/76 135/73 Pulse Oximetry 99 99 99 05/06/18 04:00 05/06/18 04:20 05/06/18 08:00 Temperature 99.0 F Pulse Rate 86 82 68 Respiratory Rate 16 16 16 Blood Pressure 127/69 Pulse Oximetry 97 98 100 Intake & Output 05/05/18 05/06/18 05/06/18 18:59 06:59 18:59 Intake Total 355 / 355 3205 / 3205 150 / 150 Output Total 1125 / 1125 Balance 355 / 355 2080 / 2080 150 / 150 Weight 58.3 kg Intake: IV 355 / 355 3205 / 3205 150 / 150 Versed Inj 50 mg In 50 ml @ 2 50 / 50 50 / 50 50 / 50 MG/HR 2 mls/hr IV.CONT TITRATE PRN Rx#:[id number] Diprivan 1000 mg/100 ml Inj 1, 100 / 100 200 / 200 000 mg In 100 ml @ 5 MCG/KG/MIN 1.905 mls/hr IV.CONT TITRATE PRN Rx#:[id number] Sodium Bicarbonate 8.4% Inj 150 1950 / 1950 MEQ In Sterile Water for Inj 850 ML @ 150 mls/hr IV.CONT . Q6H40M ELMO Rx#:[id number] Azithromycin Inj 500 MG In NS 500 / 500 Inj 250 ML @ 250 mls/hr IV.SIG Q24H ELMO Rx#:[id number] Zosyn 4.5 GM Premix 4.5 gm In 100 / 100 200 / 200 100 / 100 100 ml @ 200 mls/hr IV.SIG Q6H ELMO Rx#:[id number] Rocephin Inj 2,000 MG In NS Inj 200 / 200 100 ML @ 200 mls/hr IV.SIG Q12H ELMO Rx#:[id number] Keppra Inj 500 MG In NS Inj 100 105 / 105 105 / 105 ML @ 400 mls/hr IV.SIG Q12H ELMO Rx#:[id number] Output: Urine Amount (Catheter) 1125 / 1125 Indwelling Temp Sensing 1125 / 1125 Catheter Narrative: intubated/sedated exam not following no w/d to pain - Constitutional no acute distress - Routine HEENT Exam Head: Present: normocephalic, atraumatic - Detailed Neurological Exam: Coma Scale Eye Opening: None Verbal Response: None Motor Response: None (itubated/sedated exam) [place] Coma Scale Total: 3 - Urinary Catheter Management Indwelling Temp Sensing Catheter Cath placed during this visit: yes Reason for continuing: Hourly intake/output Insertion date: 05/05/18 Insertion time: 01:10 Results - Labs CBC & Chem 7: 05/06/18 04:32 05/06/18 04:32 Laboratory Results - last 24 hr 05/05/18 05/05/18 05/05/18 07:30 11:15 11:15 WBC 12.2 H RBC 4.25 L Hgb 13.3 Hct 39.9 MCV 93.7 MCH 31.2 MCHC 33.3 RDW 14.9 Plt Count 190 D MPV 8.4 Neut % (Auto) 81.4 H Lymph % (Auto) 11.8 [place] % (Auto) 6.4 Eos % (Auto) 0.1 Baso % (Auto) 0.3 Neut # (Auto) 10.0 H Lymph # (Auto) 1.4 [place] # (Auto) 0.8 Eos # (Auto) 0.0 Baso # (Auto) 0.0 WBC Differential . Differential Comment Auto diff final PT INR APTT Sodium 140 Potassium 3.4 L D Chloride 113 H Carbon Dioxide 18.8 L Anion Gap 8 BUN 7 Creatinine 0.79 Estimated GFR Greater than 89 Random Glucose 76 Calcium 7.5 L D Prot Corrected Calcium Phosphorus 2.3 L Magnesium 2.1 Total Bilirubin 0.6 AST 377 H ALT 88 H Alkaline Phosphatase 83 Total Creatine Kinase CK-MB (CK-2) CK-MB (CK-2) % Total Protein 7.3 D Albumin 3.2 L D Nasal Screen MRSA (PCR) Not detected 05/06/18 05/06/18 05/06/18 04:32 04:32 04:32 WBC 10.1 RBC 4.10 L Hgb 13.0 Hct 37.1 L MCV 90.4 MCH 31.8 MCHC 35.2 RDW 14.2 Plt Count 204 MPV 8.7 Neut % (Auto) 82.7 H Lymph % (Auto) 11.0 [place] % (Auto) 5.6 Eos % (Auto) 0.2 Baso % (Auto) 0.5 Neut # (Auto) 8.3 H Lymph # (Auto) 1.1 [place] # (Auto) 0.6 Eos # (Auto) 0.0 Baso # (Auto) 0.1 WBC Differential . Differential Comment Auto diff final PT 11.2 INR 1.1 APTT 27.2 Sodium 142 Potassium 2.8 L* Chloride 105 D Carbon Dioxide 25.6 Anion Gap 11 BUN 6 L Creatinine 0.81 Estimated GFR Greater than 89 Random Glucose 64 L Calcium 7.4 L* Prot Corrected Calcium 7.7 L Phosphorus 2.1 L Magnesium 2.0 Total Bilirubin 0.7 AST 416 H ALT 102 H Alkaline Phosphatase 72 Total Creatine Kinase 62838 H CK-MB (CK-2) 15.7 H CK-MB (CK-2) % 0.0 Total Protein 6.6 D Albumin 3.0 L Nasal Screen MRSA (PCR) Microbiology 05/05/18 05:15 Lumbar Puncture Gram Stain - Final 05/05/18 05:15 Lumbar Puncture CSF Culture - Preliminary No growth in 24 hours - Imaging eeg no sz mod encephalopathy Assessment and Plan - Assessment (1) Meningitis Code(s): G03.9 - Meningitis, unspecified Status: Acute - Plan cont abx per ID cont keppra 500 mg bid iv extubate per founder and ceo csf some results still pending.
[2018-05-06] MEDS: Potassium Phosphate 500 MG Soluble Tablet PO PRN ×2 (09:34→15:01)
--- NOTE | 2018-05-06 10:22 | MB ---
cc: Angelo Smith MD DATE: 05/05/2018 AKA: [id number] VALLES REQUESTING PHYSICIAN: Kelvin Boucher REASON: Sepsis, abnormal CSF. HISTORY OF PRESENT ILLNESS: This is a young black male who was brought to the emergency department after he was found down. The patient was brought into the emergency department by EMS with altered mental status. He was unable to give any history in the emergency department. He was noted to have temperature of 101 degrees, heart rate was 120-116. Further evaluation revealed white count of 21.4. The patient underwent CT scan of the head, which showed no evidence of acute intracranial pathology. CT scan of the abdomen and pelvis was also performed and it showed no evidence of intraabdominal or pelvic process. His CT of the chest was also performed that showed left lower lobe atelectasis versus contusion. The patient underwent a lumbar puncture, which revealed a 539 white cells in the CSF. 99% polys. The glucose was 68 and protein 46. The patient has been started on antibiotics. Blood cultures were taken. Cerebrospinal fluid culture is pending. He is currently intubated. He is unresponsive. The CSF Gram stain showed no white cells and no organism. Information is obtained from the medical records. There is no family available there is no family member available for interview. PAST MEDICAL HISTORY: Unknown. ALLERGIES unknown. MEDICATION: 1. Piperacillin/tazobactam 2. Diprivan. 3. Levetiracetam. Lovenox. 4. Azithromycin. SOCIAL HISTORY: Unable to obtain. REVIEW OF SYSTEMS: Unable to obtain FAMILY HISTORY: Unable to obtain. PHYSICAL EXAMINATION: GENERAL: Slender male who is unresponsive on the ventilator. VITAL SIGNS: Temperature 100.4, BP 128/60 and respirations 18, heart rate 98. HEENT Unable to fully assess since. GENERAL: The patient is unresponsive. HEENT: Head is atraumatic. Pupils are pinpoint constricted. Sclerae are pale. No icterus. No conjunctival erythema. Oropharynx intubated. Mucosa appears slightly dry. NECK: Supple without adenopathy. LUNGS: Rhonchi at both bases. HEART: Regular S1, S2, without audible murmurs, rubs or gallops. LUNGS: The left chest wall at the upper aspect of the breast has a scar. The trachea also has a scar indicating prior intubation as an old scar indicating past intubation. ABDOMEN: Bowel sounds diminished Flat, soft. No tenderness appreciated. RECTAL: Not performed. GENITOURINARY: genitalia appears normal. EXTREMITIES: No clubbing, cyanosis or edema. SKIN: No diffuse rash. NEUROLOGIC: Unable to assess. PSYCHIATRIC: Unable to assess. LABORATORY DATA: WBC 12.2, platelets 190. hemoglobin 13.3 81% neutrophils, 11% lymphocytes. Creatinine 0.79, BUN 7, sodium 140. AST 77, ALT 88, alkaline phosphatase 83. DRUG toxicology screen positive for cannabinoids. IMPRESSION: 1. Abnormal CSF with mostly neutrophils indicating meningitis and the patient was found down and had altered mental status requiring intubation. On presenting to the emergency department on the vent and now he is on the ventilator and unresponsive. 2. Sepsis. The patient's fever and leukocytosis. 3. Acute respiratory failure. 4. Abnormal chest x-ray. Atelectasis versus pneumonia and possible aspiration. 5. Elevated liver function tests. Questionable etiology. RECOMMENDATIONS: 1. Add ceftriaxone intravenous. 2. Continue piperacillin/tazobactam. 3. Continue azithromycin. 4. Monitor blood cultures. 5. Monitor spinal fluid culture. 6. Monitor temperature. 7. Monitor clinical response. Thank you for this consultation. I will monitor the patient's progress along with you and will make further recommendations upon followup if necessary. MD SOLEDAD Cartagena/socrates , 01:28 PM , 01:[address] [facility] HOSPITALJulio César
--- NOTE | 2018-05-06 10:38 | P.PNID ---
Subjective Remarks: Patient remains on the ventilator. Unresponsive. Afebrile. Blood culture has gram-positive cocci in 3 of 4 bottles. CSF culture pending. This is a 43-year-old black male who was brought to the emergency department after he was found down. The patient was brought into the emergency department by EMS with altered mental status. He was unable to give any history in the emergency department. He was noted to have temperature of 101 degrees, heart rate was 120-116. Further evaluation revealed white count of 21.4. The patient underwent CT scan of the head, which showed no evidence of acute intracranial pathology. CT scan of the abdomen and pelvis was also performed and it showed no evidence of intraabdominal or pelvic process. His CT of the chest was also performed that showed left lower lobe atelectasis versus contusion. The patient underwent a lumbar puncture, which revealed a 539 white cells in the CSF. 99% neutrophils. The glucose was 68 and protein 46. Allergies/Adverse Reactions: Allergies No Allergy Information Available Allergy (Unverified 05/04/18 23:42) AMS Objective Vital Signs 05/05/18 11:00 05/05/18 12:00 05/05/18 12:21 Temperature 99.0 F 99.1 F Pulse Rate 68 Respiratory Rate 16 16 16 Blood Pressure 142/82 H 136/78 Pulse Oximetry 100 100 100 05/05/18 13:00 05/05/18 14:00 05/05/18 15:00 Temperature 98.4 F 98.0 F 98.7 F Pulse Rate Respiratory Rate 16 16 16 Blood Pressure 136/78 151/79 H 136/72 Pulse Oximetry 100 100 100 05/05/18 16:00 05/05/18 17:00 05/05/18 17:06 Temperature 97.9 F Pulse Rate Respiratory Rate 16 16 16 Blood Pressure 130/76 137/68 Pulse Oximetry 100 100 100 05/05/18 18:00 05/05/18 19:00 05/05/18 19:15 Temperature 97.2 F L 97.3 F L Pulse Rate 53 L 57 L Respiratory Rate 16 16 16 Blood Pressure 132/78 144/80 H 131/76 Pulse Oximetry 100 100 100 05/05/18 19:30 05/05/18 19:45 05/05/18 20:00 Temperature 97.2 F L 97.0 F L 97.0 F L Pulse Rate 55 L 52 L 51 L Respiratory Rate 16 16 16 Blood Pressure 146/81 H 150/79 H 148/80 H Pulse Oximetry 100 100 100 05/05/18 20:15 05/05/18 20:28 05/05/18 20:30 Temperature 97.0 F L 97.0 F L Pulse Rate 52 L 52 L Respiratory Rate 16 16 16 Blood Pressure 144/79 H 139/83 Pulse Oximetry 100 100 100 05/05/18 20:32 05/05/18 20:45 05/05/18 21:00 Temperature 97.0 F L 97.0 F L Pulse Rate 54 L 54 L 52 L Respiratory Rate 16 24 25 H Blood Pressure 133/70 165/76 H Pulse Oximetry 100 100 05/05/18 21:15 05/05/18 21:30 05/05/18 21:45 Temperature 97.0 F L 97.5 F L 98.2 F Pulse Rate 82 116 H 93 H Respiratory Rate 23 43 H 24 Blood Pressure 159/76 H 168/80 H 142/87 H Pulse Oximetry 100 94 L 98 05/05/18 22:00 05/05/18 22:15 05/05/18 22:30 Temperature 98.8 F 99.1 F 99.3 F Pulse Rate 74 82 85 Respiratory Rate 16 18 16 Blood Pressure 140/79 138/78 123/65 Pulse Oximetry 99 100 100 05/05/18 22:45 05/05/18 23:00 05/05/18 23:15 Temperature 99.0 F 98.6 F 98.4 F Pulse Rate 82 82 66 Respiratory Rate 16 16 16 Blood Pressure 119/64 116/58 L 127/63 Pulse Oximetry 99 99 99 05/05/18 23:30 05/05/18 23:45 05/05/18 23:56 Temperature 98.4 F 98.4 F Pulse Rate 69 64 Respiratory Rate 16 16 16 Blood Pressure 126/70 149/67 H Pulse Oximetry 99 100 99 05/06/18 00:00 05/06/18 00:15 05/06/18 00:30 Temperature 98.4 F 98.6 F 98.6 F Pulse Rate 67 68 66 Respiratory Rate 16 16 16 Blood Pressure 137/106 H 137/70 132/71 Pulse Oximetry 99 99 99 05/06/18 00:45 05/06/18 01:00 05/06/18 04:00 Temperature 98.8 F 99.0 F 99.0 F Pulse Rate 65 64 86 Respiratory Rate 16 16 16 Blood Pressure 137/76 135/73 127/69 Pulse Oximetry 99 99 97 05/06/18 04:20 05/06/18 08:00 Temperature 99.8 F H Pulse Rate 82 86 Respiratory Rate 16 16 Blood Pressure 120/57 L Pulse Oximetry 98 98 Intake & Output 05/05/18 05/06/18 05/06/18 18:59 06:59 18:59 Intake Total 355 / 355 3205 / 3205 150 / 150 Output Total 1125 / 1125 Balance 355 / 355 2080 / 2080 150 / 150 Weight 58.3 kg Intake: IV 355 / 355 3205 / 3205 150 / 150 Versed Inj 50 mg In 50 ml @ 2 50 / 50 50 / 50 50 / 50 MG/HR 2 mls/hr IV.CONT TITRATE PRN Rx#:[id number] Diprivan 1000 mg/100 ml Inj 1, 100 / 100 200 / 200 000 mg In 100 ml @ 5 MCG/KG/MIN 1.905 mls/hr IV.CONT TITRATE PRN Rx#:[id number] Sodium Bicarbonate 8.4% Inj 150 1950 / 1950 MEQ In Sterile Water for Inj 850 ML @ 150 mls/hr IV.CONT . Q6H40M ELMO Rx#:[id number] Azithromycin Inj 500 MG In NS 500 / 500 Inj 250 ML @ 250 mls/hr IV.SIG Q24H ELMO Rx#:[id number] Zosyn 4.5 GM Premix 4.5 gm In 100 / 100 200 / 200 100 / 100 100 ml @ 200 mls/hr IV.SIG Q6H ELMO Rx#:[id number] Rocephin Inj 2,000 MG In NS Inj 200 / 200 100 ML @ 200 mls/hr IV.SIG Q12H ELMO Rx#:[id number] Keppra Inj 500 MG In NS Inj 100 105 / 105 105 / 105 ML @ 400 mls/hr IV.SIG Q12H ELMO Rx#:[id number] Output: Urine Amount (Catheter) 1125 / 1125 Indwelling Temp Sensing 1125 / 1125 Catheter 05/04/18 23:50 Blood - Peripheral Aerobic Blood Culture - Preliminary gram positive cocci 05/04/18 23:50 Blood - Peripheral Anaerobic Blood Culture - Pending 05/04/18 23:55 Blood - Peripheral Aerobic Blood Culture - Preliminary gram positive cocci 05/04/18 23:55 Blood - Peripheral Anaerobic Blood Culture - Preliminary gram positive cocci 05/05/18 05:15 Lumbar Puncture Gram Stain - Final 05/05/18 05:15 Lumbar Puncture CSF Culture - Preliminary No growth in 24 hours Lab - Hematology Results 05/04/18 05/05/18 05/06/18 23:50 11:15 04:32 WBC 21.4 H 12.2 H 10.1 RBC 4.94 4.25 L 4.10 L Hgb 15.2 13.3 13.0 Hct 46.3 39.9 37.1 L MCV 93.7 93.7 90.4 MCH 30.8 31.2 31.8 MCHC 32.9 33.3 35.2 RDW 14.6 14.9 14.2 Plt Count 283 190 D 204 MPV 8.4 8.4 8.7 Neut % (Auto) 89.5 H 81.4 H 82.7 H Lymph % (Auto) 5.3 L 11.8 11.0 [place] % (Auto) 4.8 6.4 5.6 Eos % (Auto) 0.0 0.1 0.2 Baso % (Auto) 0.4 0.3 0.5 Neut # (Auto) 19.1 H 10.0 H 8.3 H Lymph # (Auto) 1.1 1.4 1.1 [place] # (Auto) 1.0 H 0.8 0.6 Eos # (Auto) 0.0 0.0 0.0 Baso # (Auto) 0.1 0.0 0.1 WBC Differential . . . Differential Comment Auto diff final Auto diff final Auto diff final Lab - Chemistry Results 05/04/18 05/04/18 05/04/18 23:50 23:50 23:50 Sodium 137 Potassium 4.3 Chloride 108 H Carbon Dioxide 18.6 L Anion Gap 10 BUN 11 Creatinine 1.23 Estimated GFR 51 L Random Glucose 101 Lactic Acid 3.0 H Calcium 8.9 Prot Corrected Calcium Phosphorus 3.2 Magnesium Total Bilirubin 0.6 AST 128 H ALT 58 Alkaline Phosphatase 116 Ammonia Total Creatine Kinase 9518 H CK-MB (CK-2) 20.9 H CK-MB (CK-2) % 0.2 Troponin I 0.06 H Total Protein 9.2 H Albumin 4.5 Lipase 173 TSH 0.467 05/05/18 05/05/18 05/05/18 03:15 03:15 11:15 Sodium 140 Potassium 3.4 L D Chloride 113 H Carbon Dioxide 18.8 L Anion Gap 8 BUN 7 Creatinine 0.79 Estimated GFR Greater than 89 Random Glucose 76 Lactic Acid 0.7 Calcium 7.5 L D Prot Corrected Calcium Phosphorus 2.3 L Magnesium 2.1 Total Bilirubin 0.6 AST 377 H ALT 88 H Alkaline Phosphatase 83 Ammonia 16 Total Creatine Kinase CK-MB (CK-2) CK-MB (CK-2) % Troponin I Total Protein 7.3 D Albumin 3.2 L D Lipase TSH 05/06/18 04:32 Sodium 142 Potassium 2.8 L* Chloride 105 D Carbon Dioxide 25.6 Anion Gap 11 BUN 6 L Creatinine 0.81 Estimated GFR Greater than 89 Random Glucose 64 L Lactic Acid Calcium 7.4 L* Prot Corrected Calcium 7.7 L Phosphorus 2.1 L Magnesium 2.0 Total Bilirubin 0.7 AST 416 H ALT 102 H Alkaline Phosphatase 72 Ammonia Total Creatine Kinase 21047 H CK-MB (CK-2) 15.7 H CK-MB (CK-2) % 0.0 Troponin I Total Protein 6.6 D Albumin 3.0 L Lipase TSH Imaging: ITS Impressions Head CT 05/05/18 00:00 CONCLUSION: No evidence of acute intracranial pathology. No masses are identified. . Abdomen/Pelvis CT 05/05/18 00:59 CONCLUSION: No evidence of acute abdominal or pelvic process. No masses are identified. Chest CT 05/05/18 00:59 CONCLUSION: Left lower lobe atelectasis versus contusion. There is no evidence of pneumothorax. Chest X-Ray 05/05/18 01:30 CONCLUSION: Satisfactory position of endotracheal tube as above. Left lower lobe atelectasis versus contusion Physical Exam: PHYSICAL EXAMINATION: GENERAL: Slender male who is unresponsive on the ventilator. HEENT: Head is atraumatic. Pupils are pinpoint constricted. Sclerae are pale. No icterus. No conjunctival erythema. Oropharynx intubated. Mucosa appears slightly dry. NECK: Supple without adenopathy. LUNGS: Rhonchi at both bases. HEART: Regular S1, S2, without audible murmurs, rubs or gallops. LUNGS: Bibasilar rhonchi. ABDOMEN: Bowel sounds diminished Flat, soft. No tenderness appreciated. EXTREMITIES: No clubbing, cyanosis or edema. SKIN: No diffuse rash. NEUROLOGIC: Unable to assess. PSYCHIATRIC: Unable to assess. Assessment and Plan - Plan IMPRESSION: 1. Meningitis. 2. Sepsis. Due to gram-positive cocci. Identity and sensitivity pending. 3. Acute respiratory failure. 4. Abnormal chest x-ray. Atelectasis versus pneumonia and possible aspiration. RECOMMENDATIONS: 1. Continue ceftriaxone intravenous. 2. Continue piperacillin/tazobactam. 3. Continue azithromycin. 4. Monitor blood cultures sensitivity and identity.. 5. Monitor spinal fluid culture. 6. Monitor temperature. 7. Monitor clinical response. I have reviewed laboratory data, radiographic studies and microbiologic data in formulation of plans on this patient.
[2018-05-06] MEDS ORDERED: Dexmedetomidine Inj 200 MCG in Sodium Chlor 0.9% Inj 48 ML IV.CONT PRN (16:21)
[2018-05-06 21:27] LABS: Phosphorus 3.3 mg/dL (2.5-4.9)
[2018-05-07] MEDS: Potassium Chlor 20 mEq Premix 20 MEQ/100 ML PIGGYBACK IV.SIG PRN ×4 (00:44→22:40)
[2018-05-07] MEDS: Sodium Bicarbonate 8.4% Inj 150 MEQ in Water for Inj, Sterile 850 ML IV.CONT SCH ×4 (02:44→22:15)
[2018-05-07] MEDS: Oral Hygiene Kit OROPHARYNG SCH ×3 (04:09→16:25)
[2018-05-07] MEDS: Chlorhexidine Gluconate 2% 1 Pack (2 Cloths) TOPICAL SCH (04:10)
[2018-05-07 04:50] LABS: Baso # (Auto) 0.1 th/mm3 (0.0-0.2); Baso % (Auto) 0.7 % (0.0-2.0); Eos % (Auto) 0.4 % (0.0-4.0); Hematocrit 34.1 % (39.0-51.0); Hemoglobin 11.9 gm/dL (13.0-17.0); Lymph # (Auto) 1.7 th/mm3 (1.0-4.8); Lymph % (Auto) 17.8 % (9.0-44.0); Mean Corpuscular HGB Conc 34.9 % (32.0-36.0); Mean Corpuscular Volume 91.7 fL (80.0-100.0); Mean Platelet Volume 8.5 fL (7.0-11.0); Mono # (Auto) 0.6 th/mm3 (0.0-0.9); Mono % (Auto) 5.9 % (0.0-8.0); Neut # (Auto) 7.1 th/mm3 (1.8-7.7); Neut % (Auto) 75.2 % (16.0-70.0); Platelet Count 186 th/mm3 (150-450); Red Blood Count 3.72 mil/mm3 (4.50-5.90); Red Cell Distribution Width 13.7 % (11.6-17.2); White Blood Count 9.5 th/mm3 (4.0-11.0)
[2018-05-07] MEDS: Piperacil/Tazo 4.5 GM Premix 4.5 GM/100 ML BAG IV.SIG SCH (05:28)
[2018-05-07] MEDS: Enoxaparin Inj 40 MG/0.4 ML Syringe SQ SCH (05:28)
[2018-05-07 06:14] LABS: Anion Gap 10 meq/L (5-15); Blood Urea Nitrogen 3 mg/dL (7-18); Carbon Dioxide 32.4 meq/L (21.0-32.0); Chloride 99 meq/L (98-107); Glomerular Filtration Rate Greater Than 89 mL/min (>89); Potassium 3.1 meq/L (3.5-5.1); Sodium 141 meq/L (136-145)
[2018-05-07 06:15] LABS: Alanine Aminotransferase 218 U/L (12-78); Albumin 2.6 g/dL (3.4-5.0); Alkaline Phosphatase 60 U/L (45-117); Aspartate Aminotransferase 991 U/L (15-37); Calcium 7.4 mg/dL (8.5-10.1); Creatine Kinase 73408 U/L (39-308); Glucose,Random 79 mg/dL (74-106); Total Protein 6.3 g/dL (6.4-8.2)
[2018-05-07] MEDS: Azithromycin Inj 500 MG in Sodium Chlor 0.9% Inj 250 ML IV.SIG SCH (06:17)
[2018-05-07 06:33] LABS: Creatine Kinase MB 8.1 ng/mL (0.5-3.6)
--- NOTE | 2018-05-07 09:21 | P.PNCC ---
Subjective Subjective Remarks/Hospital Course: 05/05: Middle-aged male arrives by EMS. Wellbeing check was called. FD knocked the front door down. Patient was found diaphoretic on his bed. EMS reports altered mental status on scene with GCS of 13 (E4, V4, M5). Pt unable to provide detailed history here 2/2 AMS. Axillary temp 101 per EMS. In ER the patient had labored breathing and seemed to be unable to protect an airway and was intubated for an airway protection by ED attending. 05/06: Patient remains sedated, orally intubated on mechanical vent LP yesterday morning which is abnormal with WBCs 500s. Evaluated by neurology and ID yesterday. Worsening rhabdomyolysis noted with CPK greater than 65,000 today. Continues to make urine. EEG done yesterday did not reveal any seizure activity. 05/07: Extubated yesterday. Awake and alert, following commands. States that he has a history of seizures and did have a seizure at home prior to this admission. He tells me that he takes Keppra at home for seizures and has been compliant. Objective Vital Signs / I&O: Vital Signs 05/06/18 12:00 05/06/18 12:08 05/06/18 16:00 Temperature 100.0 F H 99.9 F H Pulse Rate 92 H 113 H Respiratory Rate 24 17 30 H Blood Pressure 133/73 144/80 H Pulse Oximetry 99 97 100 05/06/18 16:51 05/06/18 20:00 05/06/18 21:09 Temperature Pulse Rate 72 73 101 H Respiratory Rate 20 18 Blood Pressure Pulse Oximetry 99 05/07/18 00:00 05/07/18 02:53 05/07/18 02:54 Temperature 100 F H Pulse Rate 72 91 H Respiratory Rate 27 H 17 Blood Pressure 143/70 H Pulse Oximetry 99 98 05/07/18 04:00 05/07/18 07:42 05/07/18 08:46 Temperature 99.5 F Pulse Rate 83 89 Respiratory Rate 25 H 20 Blood Pressure 142/79 H Pulse Oximetry 95 99 Intake & Output 05/06/18 05/07/18 05/07/18 18:59 06:59 18:59 Intake Total 1655 / 1655 2685 / 2685 350 / 350 Output Total 1400 / 1400 2950 / 2950 Balance 255 / 255 -265 / -265 350 / 350 Weight 59.6 kg Intake: IV 1655 / 1655 2445 / 2445 350 / 350 Versed Inj 50 mg In 50 ml @ 2 50 / 50 MG/HR 2 mls/hr IV.CONT TITRATE PRN Rx#:[id number] Diprivan 1000 mg/100 ml Inj 1, 100 / 100 000 mg In 100 ml @ 5 MCG/KG/MIN 1.905 mls/hr IV.CONT TITRATE PRN Rx#:[id number] Sodium Bicarbonate 8.4% Inj 150 1000 / 1000 1950 / 1950 MEQ In Sterile Water for Inj 850 ML @ 150 mls/hr IV.CONT . Q6H40M ELMO Rx#:[id number] Azithromycin Inj 500 MG In NS 250 / 250 Inj 250 ML @ 250 mls/hr IV.SIG Q24H ELMO Rx#:[id number] Zosyn 4.5 GM Premix 4.5 gm In 300 / 300 190 / 190 100 ml @ 200 mls/hr IV.SIG Q6H ELMO Rx#:[id number] KCl 20 mEq Premix Inj 20 meq In 100 / 100 100 / 100 100 ml @ 50 mls/hr IV.SIG Q2H PRN Rx#:[id number] Rocephin Inj 2,000 MG In NS Inj 100 / 100 100 / 100 100 ML @ 200 mls/hr IV.SIG Q12H ELMO Rx#:[id number] Keppra Inj 500 MG In NS Inj 100 105 / 105 105 / 105 ML @ 400 mls/hr IV.SIG Q12H ELMO Rx#:[id number] Oral 240 / 240 Output: Urine Amount (Catheter) 1400 / 1400 2950 / 2950 Indwelling Temp Sensing 1400 / 1400 2950 / 2950 Catheter Result Diagrams: 05/07/18 04:08 05/07/18 04:08 Objective Remarks: HEENT/ Neuro: Awake alert oriented x3, Pallor present, no icterus, tongue/ mucosa moist. Moving all 4 extremities, grossly nonfocal Neck: No JVD Chest/Pulm: good air entry bilaterally, no wheezing or crackles CVS: S1-S2 regular, no murmur GI/abdomen: soft, nontender, bowel sounds sluggish Extremities: warm bilaterally, no edema Assessment and Plan - Assessment and Plan Plan: Acute Respiratory failure -Extubated following CPAP trial on 05/06, tolerating well -DuoNeb's as needed Pneumonia ? -Community-acquired versus aspiration during seizure -Zosyn/azithromycin -Follow-up cultures Encephalopathy Seizure -Doubt meningitis -Abnormal LP noted. Serologies pending. Neurology and ID following. -CT head negative -Drug screen positive only for cannabis -Continue empiric antibiotic coverage with IV Rocephin/Zosyn/azithromycin per ID. -On IV Keppra. Patient reportedly takes Keppra at home and states that he is compliant. Will defer to neurology regarding choice of anticonvulsant. -EEG done following admission did not reveal any active seizure activity. Rhabdomyolysis -most likely secondary to seizure. -CPK levels still rising. -IV hydration, strict intake output, monitor and replete electrodes, follow BUN creatinine. Continue bicarb drip to alkalinize urine. GI: -Advance p.o. diet as tolerated DVT GI prophylaxis -Teds SCDs -Subcu heparin -Pepcid Discussed with ID.
[2018-05-07] MEDS: Senna/Docusate Sodium 8.6/50 MG Tablet PO SCH ×2 (09:23→21:03)
[2018-05-07] MEDS: Famotidine 20 MG Tablet PO SCH ×2 (09:23→21:03)
[2018-05-07] MEDS: Chlorhexidine 0.12% Oral Kit 15 ML UDC OROPHARYNG SCH ×2 (09:24→21:02)
--- NOTE | 2018-05-07 10:01 | P.PNID ---
Subjective Remarks: Patient was extubated. He is very awake and alert. He reports that he knew what happened before he was admitted. He reports that he went to sleep and woke up in realize he was in the hospital. He states that he had a seizure. Reports that similar occurrence occurred in the past. He states that he did not have any headaches. Afebrile. Blood culture has gram-positive cocci in 3 of 4 bottles. Elimination 3 identification is staph coagulase-negative. CSF culture has no growth. This is a 43-year-old black male who was brought to the emergency department after he was found down. The patient was brought into the emergency department by EMS with altered mental status. He was unable to give any history in the emergency department. He was noted to have temperature of 101 degrees, heart rate was 120-116. Further evaluation revealed white count of 21.4. The patient underwent CT scan of the head, which showed no evidence of acute intracranial pathology. CT scan of the abdomen and pelvis was also performed and it showed no evidence of intraabdominal or pelvic process. His CT of the chest was also performed that showed left lower lobe atelectasis versus contusion. The patient underwent a lumbar puncture, which revealed a 539 white cells in the CSF. 99% neutrophils. The glucose was 68 and protein 46. Allergies/Adverse Reactions: Allergies No Allergy Information Available Allergy (Unverified 05/04/18 23:42) AMS Objective Vital Signs 05/06/18 12:00 05/06/18 12:08 05/06/18 16:00 Temperature 100.0 F H 99.9 F H Pulse Rate 92 H 113 H Respiratory Rate 24 17 30 H Blood Pressure 133/73 144/80 H Pulse Oximetry 99 97 100 05/06/18 16:51 05/06/18 20:00 05/06/18 21:09 Temperature Pulse Rate 72 73 101 H Respiratory Rate 20 18 Blood Pressure Pulse Oximetry 99 05/07/18 00:00 05/07/18 02:53 05/07/18 02:54 Temperature 100 F H Pulse Rate 72 91 H Respiratory Rate 27 H 17 Blood Pressure 143/70 H Pulse Oximetry 99 98 05/07/18 04:00 05/07/18 07:42 05/07/18 08:46 Temperature 99.5 F Pulse Rate 83 89 Respiratory Rate 25 H 20 Blood Pressure 142/79 H Pulse Oximetry 95 99 Intake & Output 05/06/18 05/07/18 05/07/18 18:59 06:59 18:59 Intake Total 1655 / 1655 2685 / 2685 1350 / 1350 Output Total 1400 / 1400 2950 / 2950 Balance 255 / 255 -265 / -265 1350 / 1350 Weight 59.6 kg Intake: IV 1655 / 1655 2445 / 2445 1350 / 1350 Versed Inj 50 mg In 50 ml @ 2 50 / 50 MG/HR 2 mls/hr IV.CONT TITRATE PRN Rx#:[id number] Diprivan 1000 mg/100 ml Inj 1, 100 / 100 000 mg In 100 ml @ 5 MCG/KG/MIN 1.905 mls/hr IV.CONT TITRATE PRN Rx#:[id number] Sodium Bicarbonate 8.4% Inj 150 1000 / 1000 1950 / 1950 1000 / 1000 MEQ In Sterile Water for Inj 850 ML @ 150 mls/hr IV.CONT . Q6H40M [facility] Rx#:[id number] Azithromycin Inj 500 MG In NS 250 / 250 Inj 250 ML @ 250 mls/hr IV.SIG Q24H [facility] Rx#:[id number] Zosyn 4.5 GM Premix 4.5 gm In 300 / 300 190 / 190 100 ml @ 200 mls/hr IV.SIG Q6H [facility] Rx#:[id number] KCl 20 mEq Premix Inj 20 meq In 100 / 100 100 / 100 100 ml @ 50 mls/hr IV.SIG Q2H PRN Rx#:[id number] Rocephin Inj 2,000 MG In NS Inj 100 / 100 100 / 100 100 ML @ 200 mls/hr IV.SIG Q12H [facility] Rx#:[id number] Keppra Inj 500 MG In NS Inj 100 105 / 105 105 / 105 ML @ 400 mls/hr IV.SIG Q12H [facility] Rx#:[id number] Oral 240 / 240 Output: Urine Amount (Catheter) 1400 / 1400 2950 / 2950 Indwelling Temp Sensing 1400 / 1400 2950 / 2950 Catheter 05/05/18 05:15 Lumbar Puncture Gram Stain - Final 05/05/18 05:15 Lumbar Puncture CSF Culture - Preliminary No growth in 48 hours 05/04/18 23:55 Blood - Peripheral Aerobic Blood Culture - Preliminary Staphylococcus coag negative 05/04/18 23:55 Blood - Peripheral Anaerobic Blood Culture - Preliminary gram positive cocci 05/04/18 23:50 Blood - Peripheral Aerobic Blood Culture - Preliminary gram positive cocci 05/04/18 23:50 Blood - Peripheral Anaerobic Blood Culture - Preliminary No growth in 1 day Lab - Hematology Results 05/05/18 05/06/18 05/07/18 11:15 04:32 04:08 WBC 12.2 H 10.1 9.5 RBC 4.25 L 4.10 L 3.72 L Hgb 13.3 13.0 11.9 L Hct 39.9 37.1 L 34.1 L MCV 93.7 90.4 91.7 MCH 31.2 31.8 32.0 MCHC 33.3 35.2 34.9 RDW 14.9 14.2 13.7 Plt Count 190 D 204 186 MPV 8.4 8.7 8.5 Neut % (Auto) 81.4 H 82.7 H 75.2 H Lymph % (Auto) 11.8 11.0 17.8 [place] % (Auto) 6.4 5.6 5.9 Eos % (Auto) 0.1 0.2 0.4 Baso % (Auto) 0.3 0.5 0.7 Neut # (Auto) 10.0 H 8.3 H 7.1 Lymph # (Auto) 1.4 1.1 1.7 [place] # (Auto) 0.8 0.6 0.6 Eos # (Auto) 0.0 0.0 0.0 Baso # (Auto) 0.0 0.1 0.1 WBC Differential . . . Differential Comment Auto diff final Auto diff final Auto diff final Lab - Chemistry Results 05/05/18 05/06/18 05/06/18 11:15 04:32 11:00 Sodium 140 142 Potassium 3.4 L D 2.8 L* Chloride 113 H 105 D Carbon Dioxide 18.8 L 25.6 Anion Gap 8 11 BUN 7 6 L Creatinine 0.79 0.81 Estimated GFR Greater than 89 Greater than 89 POC Glucose 70 Random Glucose 76 64 L Calcium 7.5 L D 7.4 L* Prot Corrected Calcium 7.7 L Phosphorus 2.3 L 2.1 L Magnesium 2.1 2.0 Total Bilirubin 0.6 0.7 AST 377 H 416 H ALT 88 H 102 H Alkaline Phosphatase 83 72 Total Creatine Kinase 36944 H CK-MB (CK-2) 15.7 H CK-MB (CK-2) % 0.0 Total Protein 7.3 D 6.6 D Albumin 3.2 L D 3.0 L 05/06/18 05/07/18 20:26 04:08 Sodium 141 Potassium 3.0 L 3.1 L Chloride 99 Carbon Dioxide 32.4 H Anion Gap 10 BUN 3 L Creatinine 0.74 Estimated GFR Greater than 89 POC Glucose Random Glucose 79 Calcium 7.4 L* Prot Corrected Calcium 7.8 L Phosphorus 3.3 D Magnesium Total Bilirubin 0.8 AST 991 H ALT 218 H Alkaline Phosphatase 60 Total Creatine Kinase 86069 H CK-MB (CK-2) 8.1 H CK-MB (CK-2) % 0.0 Total Protein 6.3 L Albumin 2.6 L Imaging: ITS Impressions Head CT 05/05/18 00:00 CONCLUSION: No evidence of acute intracranial pathology. No masses are identified. . Abdomen/Pelvis CT 05/05/18 00:59 CONCLUSION: No evidence of acute abdominal or pelvic process. No masses are identified. Chest CT 05/05/18 00:59 CONCLUSION: Left lower lobe atelectasis versus contusion. There is no evidence of pneumothorax. Chest X-Ray 05/05/18 01:30 CONCLUSION: Satisfactory position of endotracheal tube as above. Left lower lobe atelectasis versus contusion Physical Exam: PHYSICAL EXAMINATION: GENERAL: Slender male who is unresponsive on the ventilator. HEENT: Head is atraumatic. Pupils are reactive. Sclerae are pale. No icterus. No conjunctival erythema. Oropharynx intubated. Mucosa appears slightly dry. NECK: Supple without adenopathy. LUNGS: clear. HEART: Regular S1, S2, without audible murmurs, rubs or gallops. ABDOMEN: Bowel sounds diminished Flat, soft. No tenderness. EXTREMITIES: No clubbing, cyanosis or edema. SKIN: No diffuse rash. NEUROLOGIC: non focal. PSYCHIATRIC: calm and cooperative. Assessment and Plan - Plan IMPRESSION: 1. ?Meningitis versus abnormal CSF secondary to seizure. Changes probably likely secondary to seizure. CSF culture is negative. 2. ?Sepsis. The staph aureus in the blood is different coag negative species. This is very likely contamination. I have spoken to microbiology regarding the cultures. 3. Acute respiratory failure. Resolved. 4. Abnormal chest x-ray. Atelectasis versus pneumonia and possible aspiration. 5. Elevated liver function tests. LFT is worse. Medication is probably a factor contributing. RECOMMENDATIONS: 1. Stop ceftriaxone intravenous. 2. Stop piperacillin/tazobactam. 3. Stop azithromycin. 4. Monitor the temperature 5. Monitor clinical response. I have reviewed laboratory data, radiographic studies and microbiologic data in formulation of plans on this patient.
[2018-05-07] MEDS ORDERED: Magnesium Sulfate Inj 2 GM in Sodium Chlor 0.9% Inj 96 ML IV.SIG ONE (12:00)
--- NOTE | 2018-05-07 17:53 | ECHRPT ---
Indication: sepsis poss endocarditis CONCLUSIONS Normal left ventricular size. Wall thickness is normal. The left ventricular systolic function is low normal with an estimated ejection fraction in the rang e of 50- 55%. Trace mitral valve regurgitation. There is estimated moderate pulmonary hypertension present (range 50-60 mmHg). Trivial pericardial effusion. BP: / HR: Rhythm: MEASUREMENTS (Male / Female) Normal Values Technical Quality: 2D ECHO LV Diastolic Diameter PLAX 5.2 cm 4.2 - 5.9 / 3.9 - 5.3 cm LV Systolic Diameter PLAX 3.2 cm IVS Diastolic Thickness 0.6 cm 0.6 - 1.0 / 0.6 - 0.9 cm LVPW Diastolic Thickness 0.7 cm 0.6 - 1.0 / 0.6 - 0.9 cm LV Relative Wall Thickness 0.3 RV Internal Dim ED PLAX 1.6 cm LVOT Diameter 1.8 cm Aortic Root Diameter 2.5 cm LA Systolic Diameter LX 2.9 cm 3.0 - 4.0 / 2.7 - 3.8 cm LV Ejection Fraction MOD 4C 51.0 % LV Ejection Fraction 4C AL 50.9 % M-MODE Aortic Root Diameter MM 2.9 cm LA Systolic Diameter MM 3.2 cm LA Ao Ratio MM 1.1 AV Cusp Separation MM 1.8 cm DOPPLER AV Peak Velocity 180.0 cm/s AV Peak Gradient 13.0 mmHg LVOT Peak Velocity 172.0 cm/s LVOT Peak Gradient 11.8 mmHg AV Area Cont Eq pk 2.4 cm Mitral E Point Velocity 84.9 cm/s Mitral A Point Velocity 81.4 cm/s Mitral E to A Ratio 1.0 LV E' Lateral Velocity 12.0 cm/s Mitral E to LV E' Lateral Ratio 7.1 LV E' Septal Velocity 11.8 cm/s Mitral E to LV E' Septal Ratio 7.2 TR Peak Velocity 342.0 cm/s TR Peak Gradient 46.8 mmHg Right Atrial Pressure 10.0 mmHg Pulmonary Artery Systolic Pressu 56.8 mmHg Right Ventricular Systolic Press 56.8 mmHg PV Peak Velocity 129.0 cm/s PV Peak Gradient 6.7 mmHg FINDINGS LEFT VENTRICLE Normal left ventricular size. Wall thickness is normal. The left ventricular systolic function is low normal with an estimated ejection fraction in the rang e of 50- 55%. LEFT ATRIUM The left atrial size is normal. RIGHT ATRIUM The right atrial size is normal. ATRIAL SEPTUM Normal atrial septal thickness without atrial level shunting by limited color doppler interrogation. AORTA The aortic root and proximal ascending aorta are normal in size on limited imaging. MITRAL VALVE Trace mitral valve regurgitation. AORTIC VALVE Trileaflet aortic valve. No aortic valve stenosis or regurgitation. TRICUSPID VALVE There is estimated moderate pulmonary hypertension present (range 50-60 mmHg). PULMONARY VALVE No pulmonary valve regurgitation or stenosis. VESSELS The inferior vena cava is normal in size. PERICARDIUM Trivial pericardial effusion. Allen King MD, FACC (Electronically Signed) Final Date:07 May 2018 17:52
[2018-05-07 23:54] LABS: N Meningitidis B/EColi K1 Not Detected (Not Detected)
[2018-05-08] MEDS: Oral Hygiene Kit OROPHARYNG SCH ×4 (00:31→17:20)
[2018-05-08] MEDS: Potassium Chlor 20 mEq Premix 20 MEQ/100 ML PIGGYBACK IV.SIG PRN ×3 (01:22→05:53)
[2018-05-08] MEDS: Chlorhexidine Gluconate 2% 1 Pack (2 Cloths) TOPICAL SCH (03:37)
[2018-05-08] MEDS: Sodium Bicarbonate 8.4% Inj 150 MEQ in Water for Inj, Sterile 850 ML IV.CONT SCH ×3 (04:54→17:46)
[2018-05-08 05:08] LABS: Baso % (Auto) 0.4 % (0.0-2.0); Eos # (Auto) 0.1 th/mm3 (0.0-0.4); Eos % (Auto) 1.3 % (0.0-4.0); Hematocrit 37.6 % (39.0-51.0); Hemoglobin 12.7 gm/dL (13.0-17.0); Lymph % (Auto) 13.3 % (9.0-44.0); Mean Corpuscular HGB Conc 33.8 % (32.0-36.0); Mean Corpuscular Hemoglobin 31.3 pg (27.0-34.0); Mean Corpuscular Volume 92.7 fL (80.0-100.0); Mean Platelet Volume 8.8 fL (7.0-11.0); Mono # (Auto) 0.5 th/mm3 (0.0-0.9); Mono % (Auto) 6.4 % (0.0-8.0); Neut # (Auto) 5.9 th/mm3 (1.8-7.7); Neut % (Auto) 78.6 % (16.0-70.0); Platelet Count 201 th/mm3 (150-450); Red Blood Count 4.06 mil/mm3 (4.50-5.90); Red Cell Distribution Width 13.8 % (11.6-17.2); White Blood Count 7.5 th/mm3 (4.0-11.0)
[2018-05-08] MEDS: Enoxaparin Inj 40 MG/0.4 ML Syringe SQ SCH (05:52)
[2018-05-08 06:39] LABS: Creatine Kinase MB 4.2 ng/mL (0.5-3.6)
[2018-05-08] MEDS: Chlorhexidine 0.12% Oral Kit 15 ML UDC OROPHARYNG SCH ×2 (08:28→20:45)
[2018-05-08] MEDS: Senna/Docusate Sodium 8.6/50 MG Tablet PO SCH ×2 (08:39→23:42)
[2018-05-08] MEDS: Famotidine 20 MG Tablet PO SCH ×2 (08:39→23:42)
--- NOTE | 2018-05-08 12:07 | P.PN ---
Subjective Interval history: Follow-up toxic encephalopathy/rhabdomyolysis/multiple electrolyte derangements May 08, 2018-patient seen and examined, complains of mild headaches, still tingling in bilateral fingers, CK trending up Physical Exam Vital signs: Vital Signs 05/07/18 15:44 05/07/18 16:00 05/07/18 19:35 Temperature 99.1 F Pulse Rate 98 H 102 H 96 H Respiratory Rate 18 14 14 Blood Pressure 140/78 Pulse Oximetry 95 99 05/07/18 20:00 05/08/18 00:00 05/08/18 04:00 Temperature 99.5 F 99.7 F H 99.3 F Pulse Rate 81 91 H 72 Respiratory Rate 21 23 14 Blood Pressure 142/88 H 151/89 H 153/90 H Pulse Oximetry 99 100 98 05/08/18 08:00 05/08/18 08:02 05/08/18 08:57 Temperature 98.9 F Pulse Rate 90 80 Respiratory Rate 20 16 Blood Pressure 159/87 H Pulse Oximetry 98 97 Intake & Output 05/07/18 05/08/18 05/08/18 18:59 06:59 18:59 Intake Total 3755 / 3755 2255 / 2255 1100 / 1100 Output Total 2900 / 2900 2700 / 2700 Balance 855 / 855 -445 / -445 1100 / 1100 Weight 63.4 kg Intake: IV 2755 / 2755 2255 / 2255 1100 / 1100 Sodium Bicarbonate 8.4% Inj 150 2000 / 2000 1850 / 1850 1000 / 1000 MEQ In Sterile Water for Inj 850 ML @ 150 mls/hr IV.CONT . Q6H40M [facility] Rx#:[id number] Azithromycin Inj 500 MG In NS 250 / 250 Inj 250 ML @ 250 mls/hr IV.SIG Q24H [facility] Rx#:[id number] Magnesium Sulfate Inj 2 GM In 100 / 100 NS Inj 96 ML @ 100 mls/hr IV. SIG ONCE ONE Rx#:[id number] KCl 20 mEq Premix Inj 20 meq In 300 / 300 300 / 300 100 / 100 100 ml @ 50 mls/hr IV.SIG Q2H PRN Rx#:[id number] Keppra Inj 500 MG In NS Inj 100 105 / 105 105 / 105 ML @ 400 mls/hr IV.SIG Q12H [facility] Rx#:[id number] Oral 1000 / 1000 Output: Urine Amount (Catheter) 2900 / 2900 2700 / 2700 Indwelling Temp Sensing 2900 / 2900 2700 / 2700 Catheter Other: Date of Last Bowel Movement 05/07/18 05/07/18 05/07/18 Narrative: GENERAL: NAD SKIN: Warm and dry. HEAD: Normocephalic. EYES: No scleral icterus. No injection or drainage. NECK: Supple, trachea midline. No JVD or lymphadenopathy. CARDIOVASCULAR: Regular rate and rhythm without murmurs, gallops, or rubs. RESPIRATORY: Breath sounds equal bilaterally. No accessory muscle use. GASTROINTESTINAL: Abdomen soft, non-tender, nondistended. MUSCULOSKELETAL: No cyanosis, or edema. BACK: Nontender without obvious deformity. No CVA tenderness. - Urinary Catheter Management Indwelling Temp Sensing Catheter Cath placed during this visit: yes Reason for continuing: Hourly intake/output Insertion date: 05/05/18 Insertion time: 01:10 Results - Labs CBC & Chem 7: 05/08/18 03:19 05/07/18 21:04 Laboratory Results - last 24 hr 05/05/18 05/07/18 05/08/18 05:15 21:04 03:19 WBC RBC Hgb Hct MCV MCH MCHC RDW Plt Count MPV Neut % (Auto) Lymph % (Auto) [place] % (Auto) Eos % (Auto) Baso % (Auto) Neut # (Auto) Lymph # (Auto) [place] # (Auto) Eos # (Auto) Baso # (Auto) WBC Differential Differential Comment Potassium 3.0 L POC Glucose Total Creatine Kinase 12805 H CK-MB (CK-2) 4.2 H CK-MB (CK-2) % 0.0 CSF N.mening B/E.coli K1 Not detected CSF N.meningitidis A/Y Not detected H.influenzae Type B Ag Not detected N. meningitidis C/W 135 Not detected Group B Strep Antigen Not detected S. pneumoniae Antigen Not detected 05/08/18 05/08/18 03:19 09:45 WBC 7.5 RBC 4.06 L Hgb 12.7 L Hct 37.6 L MCV 92.7 MCH 31.3 MCHC 33.8 RDW 13.8 Plt Count 201 MPV 8.8 Neut % (Auto) 78.6 H Lymph % (Auto) 13.3 [place] % (Auto) 6.4 Eos % (Auto) 1.3 Baso % (Auto) 0.4 Neut # (Auto) 5.9 Lymph # (Auto) 1.0 [place] # (Auto) 0.5 Eos # (Auto) 0.1 Baso # (Auto) 0.0 WBC Differential . Differential Comment Auto diff final Potassium POC Glucose 137 H Total Creatine Kinase CK-MB (CK-2) CK-MB (CK-2) % CSF N.mening B/E.coli K1 CSF N.meningitidis A/Y H.influenzae Type B Ag N. meningitidis C/W 135 Group B Strep Antigen S. pneumoniae Antigen Microbiology 05/04/18 23:50 Blood - Peripheral Aerobic Blood Culture - Final Staphylococcus coag negative 05/04/18 23:50 Blood - Peripheral Anaerobic Blood Culture - Preliminary No growth in 3 days 05/05/18 05:15 Lumbar Puncture Gram Stain - Final 05/05/18 05:15 Lumbar Puncture CSF Culture - Final No growth in 72 hours 05/04/18 23:55 Blood - Peripheral Aerobic Blood Culture - Final Staphylococcus coag negative 05/04/18 23:55 Blood - Peripheral Anaerobic Blood Culture - Final Staphylococcus coag negative Assessment and Plan - Assessment (1) Toxic encephalopathy Code(s): G92 - Toxic encephalopathy Status: Acute (2) Rhabdomyolysis Code(s): M62.82 - Rhabdomyolysis Status: Acute - Plan 43-year-old man with Acute Respiratory failure -Extubated on 05/06 -DuoNeb's as needed Pneumonia ? -Community-acquired versus aspiration during seizure -All antibiotics were d/c by ID Toxic Encephalopathy Seizure -Doubt meningitis -Abnormal LP noted. Serologies pending. Neurology and ID following. -CT head negative -Drug screen positive only for cannabis -s/p IV Rocephin/Zosyn/azithromycin per ID. -On IV Keppra. -EEG done following admission did not reveal any active seizure activity. Rhabdomyolysis -most likely secondary to seizure. -CPK levels still rising. -IV hydration, strict intake output, monitor and replete electrodes, follow BUN creatinine. Continue bicarb drip to alkalinize urine. Tobacco abuse -Tobacco counseling cessation provided -Start nicotine patch DVT GI prophylaxis -Teds SCDs -Subcu heparin -Pepcid PT to treat and eval
[2018-05-09] MEDS: Sodium Bicarbonate 8.4% Inj 150 MEQ in Water for Inj, Sterile 850 ML IV.CONT SCH ×4 (01:13→23:28)
[2018-05-09] MEDS: Oral Hygiene Kit OROPHARYNG SCH ×4 (02:24→17:32)
[2018-05-09 05:30] LABS: Baso % (Auto) 0.5 % (0.0-2.0); Eos # (Auto) 0.1 th/mm3 (0.0-0.4); Eos % (Auto) 2.2 % (0.0-4.0); Hematocrit 36.7 % (39.0-51.0); Hemoglobin 12.8 gm/dL (13.0-17.0); Lymph # (Auto) 1.5 th/mm3 (1.0-4.8); Lymph % (Auto) 22.2 % (9.0-44.0); Mean Corpuscular HGB Conc 34.9 % (32.0-36.0); Mean Corpuscular Volume 91.6 fL (80.0-100.0); Mean Platelet Volume 8.1 fL (7.0-11.0); Mono # (Auto) 0.5 th/mm3 (0.0-0.9); Neut # (Auto) 4.5 th/mm3 (1.8-7.7); Neut % (Auto) 67.1 % (16.0-70.0); Platelet Count 213 th/mm3 (150-450); Red Blood Count 4.01 mil/mm3 (4.50-5.90); Red Cell Distribution Width 13.9 % (11.6-17.2); White Blood Count 6.6 th/mm3 (4.0-11.0)
[2018-05-09 05:59] LABS: Albumin 2.9 g/dL (3.4-5.0); Anion Gap 6 meq/L (5-15); Aspartate Aminotransferase 780 U/L (15-37); Blood Urea Nitrogen 3 mg/dL (7-18); Calcium 8.1 mg/dL (8.5-10.1); Carbon Dioxide 34.8 meq/L (21.0-32.0); Chloride 98 meq/L (98-107); Glomerular Filtration Rate Greater Than 89 mL/min (>89); Glucose,Random 90 mg/dL (74-106); Magnesium 1.5 mg/dL (1.5-2.5); Potassium 3.4 meq/L (3.5-5.1); Sodium 139 meq/L (136-145)
[2018-05-09 06:00] LABS: Alanine Aminotransferase 306 U/L (12-78); Phosphorus 3.4 mg/dL (2.5-4.9)
[2018-05-09] MEDS: Chlorhexidine Gluconate 2% 1 Pack (2 Cloths) TOPICAL SCH (06:10)
[2018-05-09 06:26] LABS: Alkaline Phosphatase 66 U/L (45-117); Total Protein 7.1 g/dL (6.4-8.2)
[2018-05-09] MEDS: Enoxaparin Inj 40 MG/0.4 ML Syringe SQ SCH (07:22)
[2018-05-09 07:34] LABS: Creatine Kinase 50589 U/L (39-308)
[2018-05-09 07:48] LABS: Creatine Kinase MB 2.2 ng/mL (0.5-3.6)
[2018-05-09] MEDS: Famotidine 20 MG Tablet PO SCH ×2 (08:09→20:29)
[2018-05-09] MEDS: Chlorhexidine 0.12% Oral Kit 15 ML UDC OROPHARYNG SCH ×2 (08:09→20:31)
[2018-05-09] MEDS: Senna/Docusate Sodium 8.6/50 MG Tablet PO SCH ×2 (08:09→20:29)
--- NOTE | 2018-05-09 08:52 | P.PN ---
Subjective Interval history: Patient followed due to Toxic Encephalopathy/Rhabdomyolysis/multiple electrolyte derangement. 05/09: Stable seen in his bedroom in the presence of nurse Mr. Castillo, has Hypokalemia and Hypomagnesemia replaced at this time, no nausea, vomit or diarrhea. Physical Exam Vital signs: Vital Signs 05/08/18 08:57 05/08/18 12:00 05/08/18 16:00 Temperature 98.7 F 99.0 F Pulse Rate 80 99 H 92 H Respiratory Rate 16 25 H 22 Blood Pressure 151/104 H 151/93 H Pulse Oximetry 98 98 05/08/18 19:58 05/08/18 20:00 05/09/18 00:00 Temperature 99.1 F 99.3 F Pulse Rate 82 72 Respiratory Rate 16 21 Blood Pressure 151/90 H Pulse Oximetry 98 98 05/09/18 03:22 05/09/18 04:00 05/09/18 07:00 Temperature 99.0 F 98.8 F Pulse Rate 68 84 80 Respiratory Rate 16 25 H 19 Blood Pressure 142/87 H 142/79 H Pulse Oximetry 95 96 05/09/18 07:15 05/09/18 07:30 05/09/18 07:43 Temperature 98.8 F 98.8 F Pulse Rate 84 85 75 Respiratory Rate 17 18 Blood Pressure Pulse Oximetry 95 94 L 05/09/18 07:45 05/09/18 08:00 05/09/18 08:15 Temperature 98.8 F 98.8 F 98.8 F Pulse Rate 75 83 83 Respiratory Rate 18 20 29 H Blood Pressure 141/90 H Pulse Oximetry 96 95 96 Intake & Output 05/08/18 05/09/18 05/09/18 18:59 06:59 18:59 Intake Total 3205 / 3205 1954 Output Total 3125 / 3125 2700 / 2700 Balance 80 / 80 -745 / -745 Weight 55.338 kg 56.7 kg Intake: IV 2204 / 2205 1954 Sodium Bicarbonate 8.4% Inj 150 1999 / 1999 1850 / 1850 MEQ In Sterile Water for Inj 850 ML @ 150 mls/hr IV.CONT . Q6H40M [facility] Rx#:[id number] KCl 20 mEq Premix Inj 20 meq In 100 / 100 100 ml @ 50 mls/hr IV.SIG Q2H PRN Rx#:[id number] Keppra Inj 500 MG In NS Inj 100 105 / 105 105 / 105 ML @ 400 mls/hr IV.SIG Q12H [facility] Rx#:[id number] Oral 1000 / 1000 Output: Urine Amount (Catheter) 3125 / 3125 2700 / 2700 Indwelling Temp Sensing 3125 / 3125 2700 / 2700 Catheter Other: Date of Last Bowel Movement 05/07/18 05/07/18 Weight On Admission 54.431 kg Narrative: GENERAL: NAD SKIN: Warm and dry. HEAD: Normocephalic. EYES: No scleral icterus. No injection or drainage. NECK: Supple, trachea midline. No JVD or lymphadenopathy. CARDIOVASCULAR: Regular rate and rhythm without murmurs, gallops, or rubs. RESPIRATORY: Breath sounds equal bilaterally. No accessory muscle use. GASTROINTESTINAL: Abdomen soft, non-tender, nondistended. MUSCULOSKELETAL: No cyanosis, or edema. BACK: Nontender without obvious deformity. No CVA tenderness. - Urinary Catheter Management Indwelling Temp Sensing Catheter Cath placed during this visit: yes, but has since been removed by the nurse Reason for continuing: Decision to DC catheter Insertion date: 05/05/18 Insertion time: 01:10 Removal date: 05/09/18 Removal time: 07:52 Results - Labs CBC & Chem 7: 05/09/18 05:03 05/09/18 05:03 Laboratory Results - last 24 hr 05/08/18 05/08/18 05/08/18 09:45 14:02 14:48 WBC RBC Hgb Hct MCV MCH MCHC RDW Plt Count MPV Neut % (Auto) Lymph % (Auto) [place] % (Auto) Eos % (Auto) Baso % (Auto) Neut # (Auto) Lymph # (Auto) [place] # (Auto) Eos # (Auto) Baso # (Auto) WBC Differential Differential Comment Sodium Potassium 3.6 Chloride Carbon Dioxide Anion Gap BUN Creatinine Estimated GFR POC Glucose 137 H 109 Random Glucose Calcium Phosphorus Magnesium Total Bilirubin AST ALT Alkaline Phosphatase Total Creatine Kinase CK-MB (CK-2) CK-MB (CK-2) % Total Protein Albumin 05/09/18 05/09/18 05:03 05:03 WBC 6.6 RBC 4.01 L Hgb 12.8 L Hct 36.7 L MCV 91.6 MCH 32.0 MCHC 34.9 RDW 13.9 Plt Count 213 MPV 8.1 Neut % (Auto) 67.1 Lymph % (Auto) 22.2 [place] % (Auto) 8.0 Eos % (Auto) 2.2 Baso % (Auto) 0.5 Neut # (Auto) 4.5 Lymph # (Auto) 1.5 [place] # (Auto) 0.5 Eos # (Auto) 0.1 Baso # (Auto) 0.0 WBC Differential . Differential Comment Auto diff final Sodium 139 Potassium 3.4 L Chloride 98 Carbon Dioxide 34.8 H Anion Gap 6 BUN 3 L Creatinine 0.61 Estimated GFR Greater than 89 POC Glucose Random Glucose 90 Calcium 8.1 L Phosphorus 3.4 Magnesium 1.5 Total Bilirubin 0.6 AST 780 H ALT 306 H Alkaline Phosphatase 66 Total Creatine Kinase 06357 H CK-MB (CK-2) 2.2 CK-MB (CK-2) % 0.0 Total Protein 7.1 D Albumin 2.9 L Microbiology 05/04/18 23:50 Blood - Peripheral Aerobic Blood Culture - Final Staphylococcus coag negative 05/04/18 23:50 Blood - Peripheral Anaerobic Blood Culture - Preliminary No growth in 3 days 05/05/18 05:15 Lumbar Puncture Gram Stain - Final 05/05/18 05:15 Lumbar Puncture CSF Culture - Final No growth in 72 hours Assessment and Plan - Assessment (1) Toxic encephalopathy Code(s): G92 - Toxic encephalopathy Status: Acute (2) Rhabdomyolysis Code(s): M62.82 - Rhabdomyolysis Status: Acute - Plan 43-year-old man with Acute Respiratory failure -Extubated on 05/06 -DuoNeb's as needed Pneumonia ? -Community-acquired versus aspiration during seizure -All antibiotics were d/c by ID Toxic Encephalopathy Meningitis interrogated by ID specialist versus abnormal CSF secondary seizure, Changes probably likely secondary to seizure CSF culture negative. Interrogated Sepsis by ID specialist. Staph found likely contamination. -Abnormal LP noted. Serologies pending. Neurology and ID following. -CT head negative -Drug screen positive for cannabis -s/p IV Rocephin/Zosyn/azithromycin per ID. -On IV Keppra. -EEG done following admission did not reveal any active seizure activity. Rhabdomyolysis -most likely secondary to seizure. [place] [id number] [place] [id number]. -IV hydration, strict intake output, monitor and replete electrodes, follow BUN creatinine. Continue bicarb drip to alkalinize urine. follow laboratory in am tomorrow. Tobacco abuse -Tobacco counseling cessation provided -Start nicotine patch DVT GI prophylaxis -Teds SCDs -Subcu heparin -Pepcid PT recommended PT at Rehab. Code Status: Full code. Discussed Condition With: patient and nurse. Discharge Planning: Expected in one to two days.
[2018-05-10] MEDS: Oral Hygiene Kit OROPHARYNG SCH ×4 (00:41→15:46)
[2018-05-10] MEDS: Chlorhexidine Gluconate 2% 1 Pack (2 Cloths) TOPICAL SCH (04:20)
[2018-05-10] MEDS: Enoxaparin Inj 40 MG/0.4 ML Syringe SQ SCH (05:14)
[2018-05-10] MEDS: Sodium Bicarbonate 8.4% Inj 150 MEQ in Water for Inj, Sterile 850 ML IV.CONT SCH ×4 (05:17→23:26)
[2018-05-10 06:12] LABS: Anion Gap 7 meq/L (5-15); Blood Urea Nitrogen 5 mg/dL (7-18); Calcium 8.3 mg/dL (8.5-10.1); Carbon Dioxide 32.2 meq/L (21.0-32.0); Chloride 99 meq/L (98-107); Glomerular Filtration Rate Greater Than 89 mL/min (>89); Glucose,Random 96 mg/dL (74-106); Potassium 3.6 meq/L (3.5-5.1); Sodium 138 meq/L (136-145)
[2018-05-10 07:10] LABS: Creatine Kinase 23109 U/L (39-308)
[2018-05-10 07:40] LABS: Creatine Kinase MB 2.1 ng/mL (0.5-3.6)
[2018-05-10] MEDS: Famotidine 20 MG Tablet PO SCH ×2 (09:03→21:31)
[2018-05-10] MEDS: Senna/Docusate Sodium 8.6/50 MG Tablet PO SCH ×2 (09:03→21:33)
[2018-05-10] MEDS: Chlorhexidine 0.12% Oral Kit 15 ML UDC OROPHARYNG SCH ×2 (09:08→21:33)
--- NOTE | 2018-05-10 16:27 | P.PNIM ---
Subjective Interval history: 05/05: Middle-aged male arrives by EMS. Wellbeing check was called. FD knocked the front door down. Patient was found diaphoretic on his bed. EMS reports altered mental status on scene with GCS of 13 (E4, V4, M5). Pt unable to provide detailed history here 2/2 AMS. Axillary temp 101 per EMS. In ER the patient had labored breathing and seemed to be unable to protect an airway and was intubated for an airway protection by ED attending. 05/06: Patient remains sedated, orally intubated on mechanical vent LP yesterday morning which is abnormal with WBCs 500s. Evaluated by neurology and ID yesterday. Worsening rhabdomyolysis noted with CPK greater than 65,000 today. Continues to make urine. EEG done yesterday did not reveal any seizure activity. 05/07: Extubated yesterday. Awake and alert, following commands. States that he has a history of seizures and did have a seizure at home prior to this admission. He tells me that he takes Keppra at home for seizures and has been compliant. 05-08 Follow-up toxic encephalopathy/rhabdomyolysis/multiple electrolyte derangements May 08, 2018-patient seen and examined, complains of mild headaches, still tingling in bilateral fingers, CK trending up 05-09 Patient followed due to Toxic Encephalopathy/Rhabdomyolysis/multiple electrolyte derangement. 05/09: Stable seen in his bedroom in the presence of nurse Mr. Castillo, has Hypokalemia and Hypomagnesemia replaced at this time, no nausea, vomit or diarrhea. 05-10 CKMBS COMING DOWN NEEDS TO CONTINUE FLUIDS DW RN AND PT AND FAMILY AND CM AM LABS IV FLUIDS PT AND OT Physical Exam Vital signs: Vital Signs 05/09/18 20:00 05/10/18 00:00 05/10/18 08:00 Temperature 98.8 F 98.6 F 98.1 F Pulse Rate 81 75 71 Respiratory Rate 17 17 18 Blood Pressure 139/82 138/82 136/69 Pulse Oximetry 96 98 97 05/10/18 12:00 Temperature 98.1 F Pulse Rate 90 Respiratory Rate 16 Blood Pressure 127/75 Pulse Oximetry 97 Intake & Output 05/09/18 05/10/18 05/10/18 18:59 06:59 18:59 Intake Total 1105 / 1105 1585 / 1585 1105 / 1105 Balance 1105 / 1105 1585 / 1585 1105 / 1105 Weight 56.7 kg Intake: IV 1105 / 1105 1105 / 1105 1105 / 1105 Sodium Bicarbonate 8.4% Inj 150 1000 / 1000 1000 / 1000 900 / 900 MEQ In Sterile Water for Inj 850 ML @ 150 mls/hr IV.CONT . Q6H40M ELMO Rx#:[id number] Keppra Inj 500 MG In NS Inj 100 105 / 105 105 / 105 105 / 105 ML @ 400 mls/hr IV.SIG Q12H ELMO Rx#:[id number] Oral 480 / 480 Other: # Voids 3 Date of Last Bowel Movement 05/07/18 Narrative: GENERAL: NAD SKIN: Warm and dry. HEAD: Normocephalic. EYES: No scleral icterus. No injection or drainage. NECK: Supple, trachea midline. No JVD or lymphadenopathy. CARDIOVASCULAR: Regular rate and rhythm without murmurs, gallops, or rubs. RESPIRATORY: Breath sounds equal bilaterally. No accessory muscle use. GASTROINTESTINAL: Abdomen soft, non-tender, nondistended. MUSCULOSKELETAL: No cyanosis, or edema. BACK: Nontender without obvious deformity. No CVA tenderness. Insight and judgment is limited Mood and behavior somewhat appropriate - Urinary Catheter Management Indwelling Temp Sensing Catheter Cath placed during this visit: yes, but has since been removed by the nurse Reason for continuing: Decision to DC catheter Insertion date: 05/05/18 Insertion time: 01:10 Removal date: 05/09/18 Removal time: 07:52 Results - Labs CBC & Chem 7: 05/09/18 05:03 05/10/18 05:15 Laboratory Results - last 24 hr 05/10/18 05:15 Sodium 138 Potassium 3.6 Chloride 99 Carbon Dioxide 32.2 H Anion Gap 7 BUN 5 L Creatinine 0.58 L Estimated GFR Greater than 89 Random Glucose 96 Calcium 8.3 L Total Creatine Kinase 11260 H CK-MB (CK-2) 2.1 CK-MB (CK-2) % 0.0 Microbiology 05/08/18 03:31 Blood - Peripheral Aerobic Blood Culture - Preliminary No growth in 2 days 05/08/18 03:31 Blood - Peripheral Anaerobic Blood Culture - Preliminary No growth in 2 days 05/08/18 03:19 Blood - Peripheral Aerobic Blood Culture - Preliminary No growth in 2 days 05/08/18 03:19 Blood - Peripheral Anaerobic Blood Culture - Preliminary No growth in 2 days 05/04/18 23:50 Blood - Peripheral Aerobic Blood Culture - Final Staphylococcus coag negative 05/04/18 23:50 Blood - Peripheral Anaerobic Blood Culture - Final No growth in 5 days - Imaging ITS Impressions Head CT 05/05/18 00:00 CONCLUSION: No evidence of acute intracranial pathology. No masses are identified. . Abdomen/Pelvis CT 05/05/18 00:59 CONCLUSION: No evidence of acute abdominal or pelvic process. No masses are identified. Chest CT 05/05/18 00:59 CONCLUSION: Left lower lobe atelectasis versus contusion. There is no evidence of pneumothorax. Chest X-Ray 05/05/18 01:30 CONCLUSION: Satisfactory position of endotracheal tube as above. Left lower lobe atelectasis versus contusion - Procedures Intubation Extubation Management Status post LP Assessment and Plan - Assessment (1) Toxic encephalopathy Code(s): G92 - Toxic encephalopathy Status: Acute (2) Rhabdomyolysis Code(s): M62.82 - Rhabdomyolysis Status: Acute - Plan 43-year-old man with Acute Respiratory failure -Extubated on 05/06 -DuoNeb's as needed Pneumonia ? -Community-acquired versus aspiration during seizure -All antibiotics were d/c by ID Toxic Encephalopathy Meningitis interrogated by ID specialist versus abnormal CSF secondary seizure, Changes probably likely secondary to seizure CSF culture negative. Interrogated Sepsis by ID specialist. Staph found likely contamination. -Abnormal LP noted. Serologies pending. Neurology and ID following. -CT head negative -Drug screen positive for cannabis -s/p IV Rocephin/Zosyn/azithromycin per ID. -On IV Keppra. -EEG done following admission did not reveal any active seizure activity. Rhabdomyolysis -most likely secondary to seizure. -[place] [id number] [place] [id number] [address] [place] 05-10 -IV hydration, strict intake output, monitor and replete electrodes, follow BUN creatinine. Continue bicarb drip to alkalinize urine. follow laboratory in am tomorrow. Follow-up labs tomorrow Tobacco abuse -Tobacco counseling cessation provided -Start nicotine patch LFTs are elevated will trend tomorrow A.m. labs DVT GI prophylaxis -Teds SCDs -Subcu heparin -Pepcid PT recommended PT at Rehab. -Unfortunately patient has no insurance and therefore cannot get this-continue aggressive physical therapy and Occupational Therapy Code Status: Full code Discussed Condition With: RN and patient and case management Discharge Planning: Once CKs are much better and liver functions are better
[2018-05-10 20:43] LABS: Hepatitis A IgM Antibody Nonreactive (Nonreactive); Hepatitits B Surface Antigen Nonreactive (Nonreactive)
[2018-05-11] MEDS: Oral Hygiene Kit OROPHARYNG SCH ×4 (00:08→18:38)
[2018-05-11] MEDS: Sodium Bicarbonate 8.4% Inj 150 MEQ in Water for Inj, Sterile 850 ML IV.CONT SCH ×3 (05:05→21:46)
[2018-05-11] MEDS: Enoxaparin Inj 40 MG/0.4 ML Syringe SQ SCH (05:05)
[2018-05-11 05:40] LABS: Baso # (Auto) 0.1 th/mm3 (0.0-0.2); Baso % (Auto) 0.9 % (0.0-2.0); Eos # (Auto) 0.2 th/mm3 (0.0-0.4); Eos % (Auto) 2.2 % (0.0-4.0); Hematocrit 36.9 % (39.0-51.0); Hemoglobin 12.6 gm/dL (13.0-17.0); Lymph # (Auto) 1.9 th/mm3 (1.0-4.8); Lymph % (Auto) 26.9 % (9.0-44.0); Mean Corpuscular HGB Conc 34.3 % (32.0-36.0); Mean Corpuscular Hemoglobin 31.6 pg (27.0-34.0); Mean Corpuscular Volume 92.3 fL (80.0-100.0); Mean Platelet Volume 7.5 fL (7.0-11.0); Mono # (Auto) 0.7 th/mm3 (0.0-0.9); Mono % (Auto) 9.5 % (0.0-8.0); Neut # (Auto) 4.2 th/mm3 (1.8-7.7); Neut % (Auto) 60.5 % (16.0-70.0); Platelet Count 285 th/mm3 (150-450); Red Cell Distribution Width 13.8 % (11.6-17.2)
[2018-05-11 06:04] LABS: Amylase 80 U/L (25-115); Anion Gap 5 meq/L (5-15); Aspartate Aminotransferase 331 U/L (15-37); Blood Urea Nitrogen 7 mg/dL (7-18); Calcium 8.4 mg/dL (8.5-10.1); Carbon Dioxide 34.7 meq/L (21.0-32.0); Chloride 99 meq/L (98-107); Cholesterol 129 mg/dL (120-200); Glomerular Filtration Rate Greater Than 89 mL/min (>89); Glucose,Random 93 mg/dL (74-106); Lipase 253 U/L (73-393); Magnesium 1.7 mg/dL (1.5-2.5); Potassium 3.5 meq/L (3.5-5.1); Sodium 139 meq/L (136-145)
[2018-05-11 06:05] LABS: Phosphorus 3.8 mg/dL (2.5-4.9)
[2018-05-11 06:30] LABS: Alanine Aminotransferase 263 U/L (12-78); Alkaline Phosphatase 65 U/L (45-117); Chol/HDL Ratio 4.41 Ratio; Creatine Kinase 10562 U/L (39-308); Free T4 (Free Thyroxine) 1.49 ng/dL (0.76-1.46); HDL Cholesterol 29.2 mg/dL (40.0-60.0); LDL Cholesterol,Calculated 85 mg/dL (0-99); Total Protein 7.1 g/dL (6.4-8.2); Triglycerides 76 mg/dL (42-150)
[2018-05-11 06:42] LABS: Creatine Kinase MB 2.2 ng/mL (0.5-3.6)
[2018-05-11] MEDS: Chlorhexidine 0.12% Oral Kit 15 ML UDC OROPHARYNG SCH ×2 (08:53→21:51)
[2018-05-11] MEDS: Senna/Docusate Sodium 8.6/50 MG Tablet PO SCH ×2 (08:53→21:51)
[2018-05-11] MEDS: Famotidine 20 MG Tablet PO SCH ×2 (08:53→21:45)
--- NOTE | 2018-05-11 15:06 | P.PNIM ---
Subjective Interval history: 05/05: Middle-aged male arrives by EMS. Wellbeing check was called. FD knocked the front door down. Patient was found diaphoretic on his bed. EMS reports altered mental status on scene with GCS of 13 (E4, V4, M5). Pt unable to provide detailed history here 2/2 AMS. Axillary temp 101 per EMS. In ER the patient had labored breathing and seemed to be unable to protect an airway and was intubated for an airway protection by ED attending. 05/06: Patient remains sedated, orally intubated on mechanical vent LP yesterday morning which is abnormal with WBCs 500s. Evaluated by neurology and ID yesterday. Worsening rhabdomyolysis noted with CPK greater than 65,000 today. Continues to make urine. EEG done yesterday did not reveal any seizure activity. 05/07: Extubated yesterday. Awake and alert, following commands. States that he has a history of seizures and did have a seizure at home prior to this admission. He tells me that he takes Keppra at home for seizures and has been compliant. 05-08 Follow-up toxic encephalopathy/rhabdomyolysis/multiple electrolyte derangements May 08, 2018-patient seen and examined, complains of mild headaches, still tingling in bilateral fingers, CK trending up 05-09 Patient followed due to Toxic Encephalopathy/Rhabdomyolysis/multiple electrolyte derangement. 05/09: Stable seen in his bedroom in the presence of nurse Mr. Castillo, has Hypokalemia and Hypomagnesemia replaced at this time, no nausea, vomit or diarrhea. 05-10 CKMBS COMING DOWN NEEDS TO CONTINUE FLUIDS DW RN AND PT AND FAMILY AND CM AM LABS IV FLUIDS PT AND OT 05-11 CKMBS SLOWLY COMING DOWN NEED TO CONTINUE FLUIDS NOW 10,000 AM LABS' IV FLUIDS DW RN AND PT AND FAMILY AND CM NEEDS TO AMBULATE Physical Exam Vital signs: Vital Signs 05/10/18 16:00 05/10/18 20:00 05/11/18 00:00 Temperature 98.2 F 98.2 F 98.4 F Pulse Rate 87 98 H 87 Respiratory Rate 16 17 17 Blood Pressure 125/79 145/85 H 140/89 Pulse Oximetry 97 96 96 05/11/18 08:00 05/11/18 12:00 Temperature 98.2 F 98.5 F Pulse Rate 79 83 Respiratory Rate 17 18 Blood Pressure 139/71 119/78 Pulse Oximetry 100 99 Intake & Output 05/10/18 05/11/18 05/11/18 18:59 06:59 18:59 Intake Total 2185 / 2185 2905 / 2905 705 / 705 Balance 2185 / 2185 2905 / 2905 705 / 705 Weight 57.6 kg Intake: IV 1105 / 1105 2105 / 2105 705 / 705 Sodium Bicarbonate 8.4% Inj 150 900 / 900 2000 / 2000 600 / 600 MEQ In Sterile Water for Inj 850 ML @ 150 mls/hr IV.CONT . Q6H40M ELMO Rx#:[id number] Keppra Inj 500 MG In NS Inj 100 105 / 105 105 / 105 105 / 105 ML @ 400 mls/hr IV.SIG Q12H ELMO Rx#:[id number] Oral 1080 / 1080 800 / 800 Other: # Voids 8 9 Date of Last Bowel Movement 05/10/18 05/10/18 # Bowel Movements 2 Narrative: GENERAL: NAD SKIN: Warm and dry. HEAD: Normocephalic. EYES: No scleral icterus. No injection or drainage. NECK: Supple, trachea midline. No JVD or lymphadenopathy. CARDIOVASCULAR: Regular rate and rhythm without murmurs, gallops, or rubs. RESPIRATORY: Breath sounds equal bilaterally. No accessory muscle use. GASTROINTESTINAL: Abdomen soft, non-tender, nondistended. MUSCULOSKELETAL: No cyanosis, or edema. BACK: Nontender without obvious deformity. No CVA tenderness. Insight and judgment is limited Mood and behavior somewhat appropriate - Urinary Catheter Management Indwelling Temp Sensing Catheter Cath placed during this visit: yes, but has since been removed by the nurse Reason for continuing: Decision to DC catheter Insertion date: 05/05/18 Insertion time: 01:10 Removal date: 05/09/18 Removal time: 07:52 Results - Labs CBC & Chem 7: 05/11/18 05:18 05/11/18 05:18 Laboratory Results - last 24 hr 05/10/18 05/11/18 05/11/18 17:08 05:18 05:18 WBC 7.0 RBC 4.00 L Hgb 12.6 L Hct 36.9 L MCV 92.3 MCH 31.6 MCHC 34.3 RDW 13.8 Plt Count 285 D MPV 7.5 Neut % (Auto) 60.5 Lymph % (Auto) 26.9 [place] % (Auto) 9.5 H Eos % (Auto) 2.2 Baso % (Auto) 0.9 Neut # (Auto) 4.2 Lymph # (Auto) 1.9 [place] # (Auto) 0.7 Eos # (Auto) 0.2 Baso # (Auto) 0.1 WBC Differential . Differential Comment Auto diff final Sodium 139 Potassium 3.5 Chloride 99 Carbon Dioxide 34.7 H Anion Gap 5 BUN 7 Creatinine 0.65 Estimated GFR Greater than 89 Random Glucose 93 Calcium 8.4 L Phosphorus 3.8 Magnesium 1.7 Total Bilirubin 0.4 AST 331 H ALT 263 H Alkaline Phosphatase 65 Ammonia Total Creatine Kinase 42571 H CK-MB (CK-2) 2.2 CK-MB (CK-2) % 0.0 Total Protein 7.1 Albumin 3.0 L Triglycerides 76 Cholesterol 129 LDL Cholesterol, Calc 85 HDL Cholesterol 29.2 L Cholesterol/HDL Ratio 4.41 Amylase 80 Lipase 253 TSH 3.030 Free T4 1.49 H Hepatitis A IgM Ab Nonreactive Hep Bs Antigen Nonreactive Hep B Core IgM Ab Nonreactive Hep C IgG Ab Nonreactive 05/11/18 05:18 WBC RBC Hgb Hct MCV MCH MCHC RDW Plt Count MPV Neut % (Auto) Lymph % (Auto) [place] % (Auto) Eos % (Auto) Baso % (Auto) Neut # (Auto) Lymph # (Auto) [place] # (Auto) Eos # (Auto) Baso # (Auto) WBC Differential Differential Comment Sodium Potassium Chloride Carbon Dioxide Anion Gap BUN Creatinine Estimated GFR Random Glucose Calcium Phosphorus Magnesium Total Bilirubin AST ALT Alkaline Phosphatase Ammonia 42 H Total Creatine Kinase CK-MB (CK-2) CK-MB (CK-2) % Total Protein Albumin Triglycerides Cholesterol LDL Cholesterol, Calc HDL Cholesterol Cholesterol/HDL Ratio Amylase Lipase TSH Free T4 Hepatitis A IgM Ab Hep Bs Antigen Hep B Core IgM Ab Hep C IgG Ab Microbiology 05/08/18 03:31 Blood - Peripheral Aerobic Blood Culture - Preliminary No growth in 3 days 05/08/18 03:31 Blood - Peripheral Anaerobic Blood Culture - Preliminary No growth in 3 days 05/08/18 03:19 Blood - Peripheral Aerobic Blood Culture - Preliminary No growth in 3 days 05/08/18 03:19 Blood - Peripheral Anaerobic Blood Culture - Preliminary No growth in 3 days - Imaging ITS Impressions Head CT 05/05/18 00:00 CONCLUSION: No evidence of acute intracranial pathology. No masses are identified. . Abdomen/Pelvis CT 05/05/18 00:59 CONCLUSION: No evidence of acute abdominal or pelvic process. No masses are identified. Chest CT 05/05/18 00:59 CONCLUSION: Left lower lobe atelectasis versus contusion. There is no evidence of pneumothorax. Chest X-Ray 05/05/18 01:30 CONCLUSION: Satisfactory position of endotracheal tube as above. Left lower lobe atelectasis versus contusion - Procedures Intubation Extubation Management Status post LP Assessment and Plan - Assessment (1) Toxic encephalopathy Code(s): G92 - Toxic encephalopathy Status: Acute (2) Rhabdomyolysis Code(s): M62.82 - Rhabdomyolysis Status: Acute - Plan 43-year-old man with Acute Respiratory failure -Extubated on 05/06 -DuoNeb's as needed Pneumonia ? -Community-acquired versus aspiration during seizure -All antibiotics were d/c by ID Toxic Encephalopathy Meningitis interrogated by ID specialist versus abnormal CSF secondary seizure, Changes probably likely secondary to seizure CSF culture negative. Interrogated Sepsis by ID specialist. Staph found likely contamination. -Abnormal LP noted. Serologies pending. Neurology and ID following. -CT head negative -Drug screen positive for cannabis -s/p IV Rocephin/Zosyn/azithromycin per ID. -On IV Keppra. -EEG done following admission did not reveal any active seizure activity. Rhabdomyolysis -most likely secondary to seizure. -[place] [id number] [place] [id number] [address] ON 05-10--- DOWN TO 10,000 -IV hydration, strict intake output, monitor and replete electrodes, follow BUN creatinine. Continue bicarb drip to alkalinize urine. follow laboratory in am tomorrow. Follow-up labs tomorrow Tobacco abuse -Tobacco counseling cessation provided -Start nicotine patch LFTs are elevated will trend tomorrow A.m. labs DVT GI prophylaxis -Teds SCDs -Subcu heparin -Pepcid PT recommended PT at Rehab. -Unfortunately patient has no insurance and therefore cannot get this-continue aggressive physical therapy and Occupational Therapy Code Status: FULL CODE Discussed Condition With: RN AND PT AND CM Discharge Planning: Once CKs are much better and liver functions are better
[2018-05-11 17:10] LABS: Hemoglobin A1c 4.9 % (4.3-6.0)
[2018-05-12] MEDS: Oral Hygiene Kit OROPHARYNG SCH ×4 (00:21→16:23)
[2018-05-12] MEDS: Sodium Bicarbonate 8.4% Inj 150 MEQ in Water for Inj, Sterile 850 ML IV.CONT SCH ×5 (01:51→23:18)
[2018-05-12] MEDS: Enoxaparin Inj 40 MG/0.4 ML Syringe SQ SCH (05:19)
[2018-05-12 08:36] LABS: Hematocrit 36.2 % (39.0-51.0); Hemoglobin 12.7 gm/dL (13.0-17.0); Mean Corpuscular Hemoglobin 32.1 pg (27.0-34.0); Mean Corpuscular Volume 91.6 fL (80.0-100.0); Mean Platelet Volume 7.7 fL (7.0-11.0); Platelet Count 291 th/mm3 (150-450); Red Blood Count 3.95 mil/mm3 (4.50-5.90); Red Cell Distribution Width 13.9 % (11.6-17.2); White Blood Count 6.2 th/mm3 (4.0-11.0)
[2018-05-12 08:37] LABS: Baso % (Auto) 0.7 % (0.0-2.0); Eos # (Auto) 0.1 th/mm3 (0.0-0.4); Eos % (Auto) 1.1 % (0.0-4.0); Lymph # (Auto) 1.6 th/mm3 (1.0-4.8); Lymph % (Auto) 26.1 % (9.0-44.0); Mono # (Auto) 0.8 th/mm3 (0.0-0.9); Mono % (Auto) 13.2 % (0.0-8.0); Neut # (Auto) 3.7 th/mm3 (1.8-7.7); Neut % (Auto) 58.9 % (16.0-70.0)
[2018-05-12 09:00] LABS: Albumin 2.9 g/dL (3.4-5.0); Anion Gap 5 meq/L (5-15); Aspartate Aminotransferase 166 U/L (15-37); Blood Urea Nitrogen 7 mg/dL (7-18); Calcium 8.1 mg/dL (8.5-10.1); Carbon Dioxide 34.3 meq/L (21.0-32.0); Chloride 98 meq/L (98-107); Glomerular Filtration Rate Greater Than 89 mL/min (>89); Glucose,Random 95 mg/dL (74-106); Magnesium 1.7 mg/dL (1.5-2.5); Potassium 3.6 meq/L (3.5-5.1); Sodium 137 meq/L (136-145)
[2018-05-12 09:15] LABS: Alanine Aminotransferase 207 U/L (12-78); Alkaline Phosphatase 63 U/L (45-117); Creatine Kinase 4186 U/L (39-308); Phosphorus 3.4 mg/dL (2.5-4.9); Total Protein 6.9 g/dL (6.4-8.2)
[2018-05-12 09:35] LABS: CKMB Percent 0.1 % (0.0-4.0); Creatine Kinase MB 2.1 ng/mL (0.5-3.6)
[2018-05-12] MEDS: Famotidine 20 MG Tablet PO SCH ×2 (10:27→21:37)
[2018-05-12] MEDS: Chlorhexidine 0.12% Oral Kit 15 ML UDC OROPHARYNG SCH ×2 (10:27→21:39)
[2018-05-12] MEDS: Senna/Docusate Sodium 8.6/50 MG Tablet PO SCH ×2 (10:28→21:40)
--- NOTE | 2018-05-12 14:37 | P.PNIM ---
Subjective Interval history: 05/05: Middle-aged male arrives by EMS. Wellbeing check was called. FD knocked the front door down. Patient was found diaphoretic on his bed. EMS reports altered mental status on scene with GCS of 13 (E4, V4, M5). Pt unable to provide detailed history here 2/2 AMS. Axillary temp 101 per EMS. In ER the patient had labored breathing and seemed to be unable to protect an airway and was intubated for an airway protection by ED attending. 05/06: Patient remains sedated, orally intubated on mechanical vent LP yesterday morning which is abnormal with WBCs 500s. Evaluated by neurology and ID yesterday. Worsening rhabdomyolysis noted with CPK greater than 65,000 today. Continues to make urine. EEG done yesterday did not reveal any seizure activity. 05/07: Extubated yesterday. Awake and alert, following commands. States that he has a history of seizures and did have a seizure at home prior to this admission. He tells me that he takes Keppra at home for seizures and has been compliant. 05-08 Follow-up toxic encephalopathy/rhabdomyolysis/multiple electrolyte derangements May 08, 2018-patient seen and examined, complains of mild headaches, still tingling in bilateral fingers, CK trending up 05-09 Patient followed due to Toxic Encephalopathy/Rhabdomyolysis/multiple electrolyte derangement. 05/09: Stable seen in his bedroom in the presence of nurse Mr. Castillo, has Hypokalemia and Hypomagnesemia replaced at this time, no nausea, vomit or diarrhea. 05-10 CKMBS COMING DOWN NEEDS TO CONTINUE FLUIDS DW RN AND PT AND FAMILY AND CM AM LABS IV FLUIDS PT AND OT 05-11 CKMBS SLOWLY COMING DOWN NEED TO CONTINUE FLUIDS NOW 10,000 AM LABS' IV FLUIDS DW RN AND PT AND FAMILY AND CM NEEDS TO AMBULATE 05-12 VERY SLOW IMPROVEMENT IN CKMBS CONTINUE FLUIDS 4186 CKMB LFTS IMPROVING TOO IF BELOW 2500 CK WILL DC TO HOME Physical Exam Vital signs: Vital Signs 05/11/18 16:00 05/11/18 20:00 05/12/18 00:00 Temperature 99.2 F 99.0 F 99.1 F Pulse Rate 84 91 H 75 Respiratory Rate 17 21 20 Blood Pressure 132/74 132/63 121/69 Pulse Oximetry 97 98 99 05/12/18 04:00 05/12/18 08:00 05/12/18 12:00 Temperature 98.8 F 98.3 F 98.7 F Pulse Rate 81 97 H 90 Respiratory Rate 19 16 17 Blood Pressure 114/65 166/63 H 126/74 Pulse Oximetry 99 97 99 Intake & Output 05/11/18 05/12/18 05/12/18 18:59 06:59 18:59 Intake Total 2054 Balance 2054 Weight 57.6 kg Intake: IV 1105 / 1105 1105 / 1105 Sodium Bicarbonate 8.4% Inj 150 1000 / 1000 1000 / 1000 MEQ In Sterile Water for Inj 850 ML @ 150 mls/hr IV.CONT . Q6H40M ELMO Rx#:[id number] Keppra Inj 500 MG In NS Inj 100 105 / 105 105 / 105 ML @ 400 mls/hr IV.SIG Q12H ELMO Rx#:[id number] Oral 950 / 950 800 / 800 Other: # Voids 6 6 Date of Last Bowel Movement 05/10/18 05/11/18 # Bowel Movements 1 2 Narrative: GENERAL: NAD SKIN: Warm and dry. HEAD: Normocephalic. EYES: No scleral icterus. No injection or drainage. NECK: Supple, trachea midline. No JVD or lymphadenopathy. CARDIOVASCULAR: Regular rate and rhythm without murmurs, gallops, or rubs. RESPIRATORY: Breath sounds equal bilaterally. No accessory muscle use. GASTROINTESTINAL: Abdomen soft, non-tender, nondistended. MUSCULOSKELETAL: No cyanosis, or edema. BACK: Nontender without obvious deformity. No CVA tenderness. Insight and judgment is limited Mood and behavior somewhat appropriate - Urinary Catheter Management Indwelling Temp Sensing Catheter Cath placed during this visit: yes, but has since been removed by the nurse Reason for continuing: Decision to DC catheter Insertion date: 05/05/18 Insertion time: 01:10 Removal date: 05/09/18 Removal time: 07:52 Results - Labs CBC & Chem 7: 05/12/18 08:00 05/12/18 08:00 Laboratory Results - last 24 hr 05/11/18 05/12/18 05/12/18 05:18 08:00 08:00 WBC 6.2 RBC 3.95 L Hgb 12.7 L Hct 36.2 L MCV 91.6 MCH 32.1 MCHC 35.0 RDW 13.9 Plt Count 291 MPV 7.7 Neut % (Auto) 58.9 Lymph % (Auto) 26.1 [place] % (Auto) 13.2 H Eos % (Auto) 1.1 Baso % (Auto) 0.7 Neut # (Auto) 3.7 Lymph # (Auto) 1.6 [place] # (Auto) 0.8 Eos # (Auto) 0.1 Baso # (Auto) 0.0 WBC Differential . Differential Comment Auto diff final Sodium 137 Potassium 3.6 Chloride 98 Carbon Dioxide 34.3 H Anion Gap 5 BUN 7 Creatinine 0.68 Estimated GFR Greater than 89 Random Glucose 95 Hemoglobin A1c 4.9 Calcium 8.1 L Phosphorus 3.4 Magnesium 1.7 Total Bilirubin 0.5 AST 166 H ALT 207 H Alkaline Phosphatase 63 Total Creatine Kinase 4186 H CK-MB (CK-2) 2.1 CK-MB (CK-2) % 0.1 Total Protein 6.9 Albumin 2.9 L Microbiology 05/08/18 03:31 Blood - Peripheral Aerobic Blood Culture - Preliminary No growth in 4 days 05/08/18 03:31 Blood - Peripheral Anaerobic Blood Culture - Preliminary No growth in 4 days 05/08/18 03:19 Blood - Peripheral Aerobic Blood Culture - Preliminary No growth in 4 days 05/08/18 03:19 Blood - Peripheral Anaerobic Blood Culture - Preliminary No growth in 4 days - Procedures Intubation Extubation Management Status post LP Assessment and Plan - Assessment (1) Toxic encephalopathy Code(s): G92 - Toxic encephalopathy Status: Acute (2) Rhabdomyolysis Code(s): M62.82 - Rhabdomyolysis Status: Acute - Plan 43-year-old man with Acute Respiratory failure -Extubated on 05/06 -DuoNeb's as needed Pneumonia ? -Community-acquired versus aspiration during seizure -All antibiotics were d/c by ID Toxic Encephalopathy Meningitis interrogated by ID specialist versus abnormal CSF secondary seizure, Changes probably likely secondary to seizure CSF culture negative. Interrogated Sepsis by ID specialist. Staph found likely contamination. -Abnormal LP noted. Serologies pending. Neurology and ID following. -CT head negative -Drug screen positive for cannabis -s/p IV Rocephin/Zosyn/azithromycin per ID. -On IV Keppra. -EEG done following admission did not reveal any active seizure activity. Rhabdomyolysis -most likely secondary to seizure. -[place] [id number] [place] [id number] [id number] ON 05-10--- DOWN TO 10,000--05-12 4186 CKMB -IV hydration, strict intake output, monitor and replete electrodes, follow BUN creatinine. Continue bicarb drip to alkalinize urine. follow laboratory in am tomorrow. Follow-up labs tomorrow Tobacco abuse -Tobacco counseling cessation provided -Start nicotine patch LFTs are elevated will trend tomorrow A.m. labs DVT GI prophylaxis -Teds SCDs -Subcu heparin -Pepcid PT recommended PT at Rehab. -Unfortunately patient has no insurance and therefore cannot get this-continue aggressive physical therapy and Occupational Therapy Code Status: FULL CODE Discussed Condition With: RN AND PT AND CM Discharge Planning: Once CKs are much better and liver functions are better
[2018-05-13] MEDS: Oral Hygiene Kit OROPHARYNG SCH ×2 (00:57→04:53)
[2018-05-13] MEDS: Sodium Bicarbonate 8.4% Inj 150 MEQ in Water for Inj, Sterile 850 ML IV.CONT SCH (05:17)
[2018-05-13] MEDS: Enoxaparin Inj 40 MG/0.4 ML Syringe SQ SCH (05:18)
[2018-05-13 07:32] LABS: Baso # (Auto) 0.1 th/mm3 (0.0-0.2); Baso % (Auto) 1.2 % (0.0-2.0); Eos # (Auto) 0.1 th/mm3 (0.0-0.4); Eos % (Auto) 1.9 % (0.0-4.0); Hemoglobin 12.6 gm/dL (13.0-17.0); Lymph # (Auto) 2.2 th/mm3 (1.0-4.8); Mean Corpuscular HGB Conc 34.9 % (32.0-36.0); Mean Corpuscular Hemoglobin 31.8 pg (27.0-34.0); Mean Corpuscular Volume 91.1 fL (80.0-100.0); Mean Platelet Volume 7.5 fL (7.0-11.0); Mono # (Auto) 0.9 th/mm3 (0.0-0.9); Mono % (Auto) 16.7 % (0.0-8.0); Neut # (Auto) 2.1 th/mm3 (1.8-7.7); Neut % (Auto) 39.2 % (16.0-70.0); Platelet Count 322 th/mm3 (150-450); Red Blood Count 3.95 mil/mm3 (4.50-5.90); Red Cell Distribution Width 14.5 % (11.6-17.2); White Blood Count 5.4 th/mm3 (4.0-11.0)
[2018-05-13 07:43] LABS: Anion Gap 7 meq/L (5-15); Aspartate Aminotransferase 123 U/L (15-37); Blood Urea Nitrogen 8 mg/dL (7-18); Calcium 8.6 mg/dL (8.5-10.1); Carbon Dioxide 33.2 meq/L (21.0-32.0); Chloride 97 meq/L (98-107); Glomerular Filtration Rate Greater Than 89 mL/min (>89); Glucose,Random 87 mg/dL (74-106); Magnesium 1.8 mg/dL (1.5-2.5); Potassium 3.8 meq/L (3.5-5.1); Sodium 137 meq/L (136-145)
[2018-05-13 07:57] LABS: Alanine Aminotransferase 194 U/L (12-78); Alkaline Phosphatase 75 U/L (45-117); Creatine Kinase 2723 U/L (39-308); Phosphorus 3.4 mg/dL (2.5-4.9); Total Protein 7.4 g/dL (6.4-8.2)
[2018-05-13 08:14] LABS: CKMB Percent 0.1 % (0.0-4.0); Creatine Kinase MB 2.6 ng/mL (0.5-3.6)
[2018-05-13 08:24] VITALS: PULSE 73
[2018-05-13] MEDS: Senna/Docusate Sodium 8.6/50 MG Tablet PO SCH ×2 (09:19→09:21)
[2018-05-13] MEDS: Famotidine 20 MG Tablet PO SCH (09:19)
[2018-05-13] MEDS: Chlorhexidine 0.12% Oral Kit 15 ML UDC OROPHARYNG SCH (09:20)
[2018-05-13 11:49] VITALS: BP 138/84; RESP 19; TEMP 98.4; O2SAT 99
--- NOTE | 2018-05-13 12:13 | P.PNIM ---
Subjective Interval history: 05/05: Middle-aged male arrives by EMS. Wellbeing check was called. FD knocked the front door down. Patient was found diaphoretic on his bed. EMS reports altered mental status on scene with GCS of 13 (E4, V4, M5). Pt unable to provide detailed history here 2/2 AMS. Axillary temp 101 per EMS. In ER the patient had labored breathing and seemed to be unable to protect an airway and was intubated for an airway protection by ED attending. 05/06: Patient remains sedated, orally intubated on mechanical vent LP yesterday morning which is abnormal with WBCs 500s. Evaluated by neurology and ID yesterday. Worsening rhabdomyolysis noted with CPK greater than 65,000 today. Continues to make urine. EEG done yesterday did not reveal any seizure activity. 05/07: Extubated yesterday. Awake and alert, following commands. States that he has a history of seizures and did have a seizure at home prior to this admission. He tells me that he takes Keppra at home for seizures and has been compliant. 05-08 Follow-up toxic encephalopathy/rhabdomyolysis/multiple electrolyte derangements May 08, 2018-patient seen and examined, complains of mild headaches, still tingling in bilateral fingers, CK trending up 05-09 Patient followed due to Toxic Encephalopathy/Rhabdomyolysis/multiple electrolyte derangement. 05/09: Stable seen in his bedroom in the presence of nurse Mr. Castillo, has Hypokalemia and Hypomagnesemia replaced at this time, no nausea, vomit or diarrhea. 05-10 CKMBS COMING DOWN NEEDS TO CONTINUE FLUIDS DW RN AND PT AND FAMILY AND CM AM LABS IV FLUIDS PT AND OT 05-11 CKMBS SLOWLY COMING DOWN NEED TO CONTINUE FLUIDS NOW 10,000 AM LABS' IV FLUIDS DW RN AND PT AND FAMILY AND CM NEEDS TO AMBULATE - VERY SLOW IMPROVEMENT IN CKMBS CONTINUE FLUIDS 4186 CKMB LFTS IMPROVING TOO 10- ckmb finally under 3000 PATIENT CAN DC TO HOME TODAY NEEDS TO CONTINUE TO TAKE ORAL FLUIDS NO ALCOHOL OR DRUGS ETC DC TO HOME DW RN AND PT AND CM Physical Exam Vital signs: Vital Signs 05/12/18 16:00 05/12/18 20:00 05/13/18 00:00 Temperature 99.1 F 98.0 F 98.7 F Pulse Rate 79 84 77 Respiratory Rate 17 18 18 Blood Pressure 108/76 115/74 143/79 H Pulse Oximetry 99 98 99 05/13/18 08:00 05/13/18 11:47 Temperature 98.2 F 98.4 F Pulse Rate 73 73 Respiratory Rate 17 19 Blood Pressure 132/77 138/84 Pulse Oximetry 100 99 Intake & Output 05/12/18 05/13/18 05/13/18 18:59 06:59 18:59 Intake Total 2405 / 2405 2805 / 2805 Balance 2405 / 2405 2805 / 2805 Weight 57.6 kg Intake: IV 1105 / 1105 2105 / 2105 Sodium Bicarbonate 8.4% Inj 150 1000 / 1000 2000 / 2000 MEQ In Sterile Water for Inj 850 ML @ 150 mls/hr IV.CONT . Q6H40M ELMO Rx#:[id number] Keppra Inj 500 MG In NS Inj 100 105 / 105 105 / 105 ML @ 400 mls/hr IV.SIG Q12H ELMO Rx#:[id number] Oral 1300 / 1300 700 / 700 Other: # Voids 3 7 Date of Last Bowel Movement 05/12/18 05/13/18 # Bowel Movements 2 2 Narrative: GENERAL: NAD SKIN: Warm and dry. HEAD: Normocephalic. EYES: No scleral icterus. No injection or drainage. NECK: Supple, trachea midline. No JVD or lymphadenopathy. CARDIOVASCULAR: Regular rate and rhythm without murmurs, gallops, or rubs. RESPIRATORY: Breath sounds equal bilaterally. No accessory muscle use. GASTROINTESTINAL: Abdomen soft, non-tender, nondistended. MUSCULOSKELETAL: No cyanosis, or edema. BACK: Nontender without obvious deformity. No CVA tenderness. Insight and judgment is limited Mood and behavior somewhat appropriate - Urinary Catheter Management Indwelling Temp Sensing Catheter Cath placed during this visit: yes, but has since been removed by the nurse Reason for continuing: Decision to DC catheter Insertion date: 05/05/18 Insertion time: 01:10 Removal date: 05/09/18 Removal time: 07:52 Results - Labs CBC & Chem 7: 05/13/18 06:49 05/13/18 06:49 Laboratory Results - last 24 hr 05/13/18 05/13/18 06:49 06:49 WBC 5.4 RBC 3.95 L Hgb 12.6 L Hct 36.0 L MCV 91.1 MCH 31.8 MCHC 34.9 RDW 14.5 Plt Count 322 MPV 7.5 Neut % (Auto) 39.2 Lymph % (Auto) 41.0 [place] % (Auto) 16.7 H Eos % (Auto) 1.9 Baso % (Auto) 1.2 Neut # (Auto) 2.1 Lymph # (Auto) 2.2 [place] # (Auto) 0.9 Eos # (Auto) 0.1 Baso # (Auto) 0.1 WBC Differential . Differential Comment Auto diff final Sodium 137 Potassium 3.8 Chloride 97 L Carbon Dioxide 33.2 H Anion Gap 7 BUN 8 Creatinine 0.70 Estimated GFR Greater than 89 Random Glucose 87 Calcium 8.6 Phosphorus 3.4 Magnesium 1.8 Total Bilirubin 0.3 AST 123 H ALT 194 H Alkaline Phosphatase 75 Total Creatine Kinase 2723 H CK-MB (CK-2) 2.6 CK-MB (CK-2) % 0.1 Total Protein 7.4 Albumin 3.0 L Microbiology 05/08/18 03:31 Blood - Peripheral Aerobic Blood Culture - Final No growth in 5 days 05/08/18 03:31 Blood - Peripheral Anaerobic Blood Culture - Final No growth in 5 days 05/08/18 03:19 Blood - Peripheral Aerobic Blood Culture - Final No growth in 5 days 05/08/18 03:19 Blood - Peripheral Anaerobic Blood Culture - Final No growth in 5 days - Imaging Chest X-Ray 05/04/18 23:43 CONCLUSION: No acute cardiopulmonary disease. Head CT 05/05/18 00:00 CONCLUSION: No evidence of acute intracranial pathology. No masses are identified. . Abdomen/Pelvis CT 05/05/18 00:59 CONCLUSION: No evidence of acute abdominal or pelvic process. No masses are identified. Chest CT 05/05/18 00:59 CONCLUSION: Left lower lobe atelectasis versus contusion. There is no evidence of pneumothorax. Chest X-Ray 05/05/18 01:30 CONCLUSION: Satisfactory position of endotracheal tube as above. Left lower lobe atelectasis versus contusion - Procedures Intubation Extubation Management Status post LP Assessment and Plan - Assessment (1) Toxic encephalopathy Code(s): G92 - Toxic encephalopathy Status: Acute (2) Rhabdomyolysis Code(s): M62.82 - Rhabdomyolysis Status: Acute - Plan 43-year-old man with Acute Respiratory failure -Extubated on 05/06 -DuoNeb's as needed Pneumonia ? -Community-acquired versus aspiration during seizure -All antibiotics were d/c by ID Toxic Encephalopathy Meningitis interrogated by ID specialist versus abnormal CSF secondary seizure, Changes probably likely secondary to seizure CSF culture negative. Interrogated Sepsis by ID specialist. Staph found likely contamination. -Abnormal LP noted. Serologies pending. Neurology and ID following. -CT head negative -Drug screen positive for cannabis -s/p IV Rocephin/Zosyn/azithromycin per ID. -On IV Keppra. -EEG done following admission did not reveal any active seizure activity. Rhabdomyolysis -most likely secondary to seizure. [place] [id number] [place] [id number] [id number] ON 05-10--- DOWN TO 10,000--05-12 4186 CKMB NOW 2723 WILL DC TO HOME TODAY -DC TO HOME TODAY Tobacco abuse -Tobacco counseling cessation provided -Start nicotine patch LFTs are elevated will trend tomorrow A.m. labs TRENDING DOWN DVT GI prophylaxis -Teds SCDs -Subcu heparin -Pepcid PT recommended PT at Rehab. -Unfortunately patient has no insurance and therefore cannot get this-continue aggressive physical therapy and Occupational Therapy DC TO HOME TODAY Code Status: FULL CODE Discussed Condition With: RN AND PT AND CM Discharge Planning: Once CKs are much better and liver functions are better WILL DC TO HOME TODAY
--- NOTE | 2018-05-13 12:20 | P.DS ---
Date of admission: 05/05/18 02:55 Primary care physician: UNKNOWN Attending physician on discharge: Bertrand Viera Anticipated date of discharge: 05/13/18 Brief History from admission: Middle-aged male arrives by EMS. Wellbeing check was called. FD knocked the front door down. Patient was found diaphoretic on his bed. EMS reports altered mental status on scene with GCS of 13 (E4, V4, M5). Pt unable to provide detailed history here 2/2 AMS. Axillary temp 101 per EMS. During my exam the patient had labored breathing and seemed to be unable to protect an airway and was intubated for an airway protection by ED attending. Patient update on day of discharge: 05/05: Middle-aged male arrives by EMS. Wellbeing check was called. FD knocked the front door down. Patient was found diaphoretic on his bed. EMS reports altered mental status on scene with GCS of 13 (E4, V4, M5). Pt unable to provide detailed history here 2/2 AMS. Axillary temp 101 per EMS. In ER the patient had labored breathing and seemed to be unable to protect an airway and was intubated for an airway protection by ED attending. 05/06: Patient remains sedated, orally intubated on mechanical vent LP yesterday morning which is abnormal with WBCs 500s. Evaluated by neurology and ID yesterday. Worsening rhabdomyolysis noted with CPK greater than 65,000 today. Continues to make urine. EEG done yesterday did not reveal any seizure activity. 05/07: Extubated yesterday. Awake and alert, following commands. States that he has a history of seizures and did have a seizure at home prior to this admission. He tells me that he takes Keppra at home for seizures and has been compliant. 05-08 Follow-up toxic encephalopathy/rhabdomyolysis/multiple electrolyte derangements May 08, 2018-patient seen and examined, complains of mild headaches, still tingling in bilateral fingers, CK trending up 05-09 Patient followed due to Toxic Encephalopathy/Rhabdomyolysis/multiple electrolyte derangement. 05/09: Stable seen in his bedroom in the presence of nurse Mr. Castillo, has Hypokalemia and Hypomagnesemia replaced at this time, no nausea, vomit or diarrhea. 05-10 CKMBS COMING DOWN NEEDS TO CONTINUE FLUIDS DW RN AND PT AND FAMILY AND CM AM LABS IV FLUIDS PT AND OT 10-23 CKMBS SLOWLY COMING DOWN NEED TO CONTINUE FLUIDS NOW 10,000 AM LABS' IV FLUIDS DW RN AND PT AND FAMILY AND CM NEEDS TO AMBULATE 10- VERY SLOW IMPROVEMENT IN CKMBS CONTINUE FLUIDS 4186 CKMB LFTS IMPROVING TOO 10- ckmb finally under 3000 PATIENT CAN DC TO HOME TODAY NEEDS TO CONTINUE TO TAKE ORAL FLUIDS NO ALCOHOL OR DRUGS ETC DC TO HOME DW RN AND PT AND CM DS: Diagnosis - Discharge Diagnosis (1) Toxic encephalopathy Status: Acute (2) Rhabdomyolysis Status: Acute DS: Medications - Discharge Medications Prescriptions: famotidine 20 mg PO BID #60 tab levetiracetam [Keppra] 500 mg PO BID #60 tab nicotine 1 patch TRANSDERMAL DAILY #30 ea DS: Summary Hospital Course: 05/05: Middle-aged male arrives by EMS. Wellbeing check was called. FD knocked the front door down. Patient was found diaphoretic on his bed. EMS reports altered mental status on scene with GCS of 13 (E4, V4, M5). Pt unable to provide detailed history here 2/ AMS. Axillary temp 101 per EMS. In ER the patient had labored breathing and seemed to be unable to protect an airway and was intubated for an airway protection by ED attending. 05/06: Patient remains sedated, orally intubated on mechanical vent LP yesterday morning which is abnormal with WBCs 500s. Evaluated by neurology and ID yesterday. Worsening rhabdomyolysis noted with CPK greater than 65,000 today. Continues to make urine. EEG done yesterday did not reveal any seizure activity. 05/07: Extubated yesterday. Awake and alert, following commands. States that he has a history of seizures and did have a seizure at home prior to this admission. He tells me that he takes Keppra at home for seizures and has been compliant. 05-08 Follow-up toxic encephalopathy/rhabdomyolysis/multiple electrolyte derangements May 08, 2018-patient seen and examined, complains of mild headaches, still tingling in bilateral fingers, CK trending up 05-09 Patient followed due to Toxic Encephalopathy/Rhabdomyolysis/multiple electrolyte derangement. 05/09: Stable seen in his bedroom in the presence of nurse Hedy Castillo, has Hypokalemia and Hypomagnesemia replaced at this time, no nausea, vomit or diarrhea. 05-10 CKMBS COMING DOWN NEEDS TO CONTINUE FLUIDS DW RN AND PT AND FAMILY AND CM AM LABS IV FLUIDS PT AND OT 05-11 CKMBS SLOWLY COMING DOWN NEED TO CONTINUE FLUIDS NOW 10,000 AM LABS' IV FLUIDS DW RN AND PT AND FAMILY AND CM NEEDS TO AMBULATE 05-12 VERY SLOW IMPROVEMENT IN CKMBS CONTINUE FLUIDS 4186 CKMB LFTS IMPROVING TOO - ckmb finally under 3000 PATIENT CAN DC TO HOME TODAY NEEDS TO CONTINUE TO TAKE ORAL FLUIDS NO ALCOHOL OR DRUGS ETC DC TO HOME DW RN AND PT AND CM - Time Spent with Patient Total time spent providing and/or coordinating discharge services: Greater than 30 minutes - Quality: VTE Deep Vein Thrombosis/Pulmonary Embolism Present on Admission: No Exam Vital signs: Vital Signs 05/12/18 16:00 05/12/18 20:00 05/13/18 00:00 Temperature 99.1 F 98.0 F 98.7 F Pulse Rate 79 84 77 Respiratory Rate 17 18 18 Blood Pressure 108/76 115/74 143/79 H Pulse Oximetry 99 98 99 05/13/18 08:00 05/13/18 11:47 Temperature 98.2 F 98.4 F Pulse Rate 73 73 Respiratory Rate 17 19 Blood Pressure 132/77 138/84 Pulse Oximetry 100 99 Intake & Output 05/12/18 05/13/18 05/13/18 18:59 06:59 18:59 Intake Total 2405 / 2405 2805 / 2805 Balance 2405 / 2405 2805 / 2805 Weight 57.6 kg Intake: IV 1105 / 1105 2105 / 2105 Sodium Bicarbonate 8.4% Inj 150 1000 / 1000 2000 / 2000 MEQ In Sterile Water for Inj 850 ML @ 150 mls/hr IV.CONT . Q6H40M ELMO Rx#:[id number] Keppra Inj 500 MG In NS Inj 100 105 / 105 105 / 105 ML @ 400 mls/hr IV.SIG Q12H ELMO Rx#:[id number] Oral 1300 / 1300 700 / 700 Other: # Voids 3 7 Date of Last Bowel Movement 05/12/18 05/13/18 # Bowel Movements 2 2 Narrative: GENERAL: NAD SKIN: Warm and dry. HEAD: Normocephalic. EYES: No scleral icterus. No injection or drainage. NECK: Supple, trachea midline. No JVD or lymphadenopathy. CARDIOVASCULAR: Regular rate and rhythm without murmurs, gallops, or rubs. RESPIRATORY: Breath sounds equal bilaterally. No accessory muscle use. GASTROINTESTINAL: Abdomen soft, non-tender, nondistended. MUSCULOSKELETAL: No cyanosis, or edema. BACK: Nontender without obvious deformity. No CVA tenderness. Insight and judgment is limited Mood and behavior somewhat appropriate Results Procedures completed during hospitalization: Intubation Extubation Management Status post LP Completed studies during hospitalization: Laboratory Results WBC 5.4 th/mm3 (4.0-11.0) 05/13/18 06:49 RBC 3.95 mil/mm3 (4.50-5.90) L 05/13/18 06:49 Hgb 12.6 gm/dL (13.0-17.0) L 05/13/18 06:49 Hct 36.0 % (39.0-51.0) L 05/13/18 06:49 MCV 91.1 fL (80.0-100.0) 05/13/18 06:49 MCH 31.8 pg (27.0-34.0) 05/13/18 06:49 MCHC 34.9 % (32.0-36.0) 05/13/18 06:49 RDW 14.5 % (11.6-17.2) 05/13/18 06:49 Plt Count 322 th/mm3 (150-450) 05/13/18 06:49 MPV 7.5 fL (7.0-11.0) 05/13/18 06:49 Neut % (Auto) 39.2 % (16.0-70.0) 05/13/18 06:49 Lymph % (Auto) 41.0 % (9.0-44.0) 05/13/18 06:49 [place] % (Auto) 16.7 % (0.0-8.0) H 05/13/18 06:49 Eos % (Auto) 1.9 % (0.0-4.0) 05/13/18 06:49 Baso % (Auto) 1.2 % (0.0-2.0) 05/13/18 06:49 Neut # (Auto) 2.1 th/mm3 (1.8-7.7) 05/13/18 06:49 Lymph # (Auto) 2.2 th/mm3 (1.0-4.8) 05/13/18 06:49 Marshall # (Auto) 0.9 th/mm3 (0.0-0.9) 05/13/18 06:49 Eos # (Auto) 0.1 th/mm3 (0.0-0.4) 05/13/18 06:49 Baso # (Auto) 0.1 th/mm3 (0.0-0.2) 05/13/18 06:49 WBC Differential . 05/13/18 06:49 Differential Comment Auto diff final 05/13/18 06:49 PT 11.2 sec (9.8-11.6) 05/06/18 04:32 INR 1.1 Ratio 05/06/18 04:32 APTT 27.2 sec (24.3-30.1) 05/06/18 04:32 Puncture Site Right radial 05/05/18 02:45 Patient Temperature 98.6 05/05/18 02:45 O2 Saturation 95 % (90-100) 05/05/18 02:45 ABG pH 7.34 (7.380-7.420) L 05/05/18 02:45 ABG pCO2 35 mmHg (38-42) L 05/05/18 02:45 ABG pO2 86 mmHg (61-120) 05/05/18 02:45 ABG HCO3 18 mmol/L (22-26) L 05/05/18 02:45 ABG O2 Content 17.3 Vol % (12.0-20.0) 05/05/18 02:45 ABG Base Excess -6.4 mmol/L (-2-2) L 05/05/18 02:45 ABG Methemoglobin 0.9 % (0-2) 05/05/18 02:45 Yvon Test Y 05/05/18 02:45 Hemoglobin 13.0 G/DL (12.0-16.0) 05/05/18 02:45 Carboxyhemoglobin 0.6 % (0-4) 05/05/18 02:45 O2 Delivery Device Ventilator 05/05/18 02:45 Liter Flow Cancelled 05/05/18 00:30 Vent Setting [id number] 05/05/18 02:45 Inspired O2 10 % 05/05/18 02:45 Critical Value No 05/05/18 02:45 Sodium 137 meq/L (136-145) 05/13/18 06:49 Potassium 3.8 meq/L (3.5-5.1) 05/13/18 06:49 Chloride 97 meq/L (98-107) L 05/13/18 06:49 Carbon Dioxide 33.2 meq/L (21.0-32.0) H 05/13/18 06:49 Anion Gap 7 meq/L (5-15) 05/13/18 06:49 BUN 8 mg/dL (7-18) 05/13/18 06:49 Creatinine 0.70 mg/dL (0.60-1.30) 05/13/18 06:49 Estimated GFR Greater than 89 mL/min (>89) 05/13/18 06:49 POC Glucose 109 mg/dl (68-110) 05/08/18 14:02 Random Glucose 87 mg/dL (74-106) 05/13/18 06:49 Hemoglobin A1c 4.9 % (4.3-6.0) 05/11/18 05:18 Lactic Acid 0.7 mmol/L (0.4-2.0) 05/05/18 03:15 Calcium 8.6 mg/dL (8.5-10.1) 05/13/18 06:49 Prot Corrected Calcium 7.8 mg/dL (8.5-10.1) L 05/07/18 04:08 Phosphorus 3.4 mg/dL (2.5-4.9) 05/13/18 06:49 Magnesium 1.8 mg/dL (1.5-2.5) 05/13/18 06:49 Total Bilirubin 0.3 mg/dL (0.2-1.0) 05/13/18 06:49 AST 123 U/L (15-37) H 05/13/18 06:49 ALT 194 U/L (12-78) H 05/13/18 06:49 Alkaline Phosphatase 75 U/L (45-117) 05/13/18 06:49 Ammonia 42 mcmol/L (11-32) H 05/11/18 05:18 Total Creatine Kinase 2723 U/L (39-308) H 05/13/18 06:49 CK-MB (CK-2) 2.6 ng/mL (0.5-3.6) 05/13/18 06:49 CK-MB (CK-2) % 0.1 % (0.0-4.0) 05/13/18 06:49 Troponin I 0.06 ng/mL (0.02-0.05) H 05/04/18 23:50 Total Protein 7.4 g/dL (6.4-8.2) 05/13/18 06:49 Albumin 3.0 g/dL (3.4-5.0) L 05/13/18 06:49 Triglycerides 76 mg/dL (42-150) 05/11/18 05:18 Cholesterol 129 mg/dL (120-200) 05/11/18 05:18 LDL Cholesterol, Calc 85 mg/dL (0-99) 05/11/18 05:18 HDL Cholesterol 29.2 mg/dL (40.0-60.0) L 05/11/18 05:18 Cholesterol/HDL Ratio 4.41 Ratio 05/11/18 05:18 Amylase 80 U/L (25-115) 05/11/18 05:18 Lipase 253 U/L (73-393) 05/11/18 05:18 TSH 3.030 uIU/mL (0.358-3.740) 05/11/18 05:18 Free T4 1.49 ng/dL (0.76-1.46) H 05/11/18 05:18 Urine Color Yellow (Yellw/Straw) 05/05/18 00:30 Urine Clarity Turbid (Clear) H 05/05/18 00:30 Urine pH 5.0 (5.0-8.5) 05/05/18 00:30 Ur Specific [place] 1.021 (1.002-1.035) 05/05/18 00:30 Urine Protein 100 mg/dL (Neg-Trace) H 05/05/18 00:30 Urine Glucose (UA) Negative mg/dL (Negative) 05/05/18 00:30 Urine Ketones 20 mg/dL (Negative) 05/05/18 00:30 Urine Occult Blood Negative (Negative) 05/05/18 00:30 Urine Nitrate Negative (Negative) 05/05/18 00:30 Urine Bilirubin Negative (Negative) 05/05/18 00:30 Urine Urobilinogen Less than 2 mg/dL (Less than 2) 05/05/18 00:30 Ur Leukocyte Esterase Negative (Negative) 05/05/18 00:30 Amorphous Sediment Occasional /hpf (None) H 05/05/18 00:30 Micro UA Comment Culture not ind 05/05/18 00:30 Ur Microscopic Review Not Reportable 05/05/18 00:30 Urine Culture Comments Culture not ind 05/05/18 00:30 CSF Volume (1) 1.0 mL 05/05/18 05:15 CSF Supernat Color (1) Clear (Clear) 05/05/18 05:15 CSF Gross Blood (1) Trace (0) A 05/05/18 05:15 CSF Volume (2) 1.5 mL 05/05/18 05:15 CSF Supernat Color (2) Clear (Clear) 05/05/18 05:15 CSF Gross Blood (2) Trace (0) A 05/05/18 05:15 CSF Volume (3) 1.3 mL 05/05/18 05:15 CSF Supernat Color (3) Clear (Clear) 05/05/18 05:15 CSF Gross Blood (3) Trace (0) A 05/05/18 05:15 CSF Volume (4) 0.5 mL 05/05/18 05:15 CSF Supernat Color (4) Clear (Clear) 05/05/18 05:15 CSF Gross Blood (4) 0 (0) 05/05/18 05:15 CSF WBC (4) 539 /mm3 (0-10) H 05/05/18 05:15 CSF RBC (4) 0 /mm3 (None) 05/05/18 05:15 CSF Neutrophils % 99 % 05/05/18 05:15 CSF Lymphocytes % 0 % 05/05/18 05:15 CSF Monocytes % 1 % 05/05/18 05:15 CSF Glucose 68 mg/dL (40-80) 05/05/18 05:15 CSF Total Protein 46.6 mg/dL (15.0-45.0) H 05/05/18 05:15 CSF Herpes I DNA (PCR) Negative (Negative) 05/05/18 05:15 CSF Herpes II DNA (PCR) Negative (Negative) 05/05/18 05:15 CSF N.mening B/E.coli K1 Not detected (Not Detected) 05/05/18 05:15 CSF N.meningitidis A/Y Not detected (Not Detected) 05/05/18 05:15 Nasal Screen MRSA (PCR) Not detected (Negative) 05/05/18 07:30 Urine Opiates Screen Neg (Neg) 05/05/18 00:30 Ur Barbiturates Screen Neg (Neg) 05/05/18 00:30 Ur Amphetamines Screen Neg (Neg) 05/05/18 00:30 U Benzodiazepines Scrn Neg (Neg) 05/05/18 00:30 Urine Cocaine Screen Neg (Neg) 05/05/18 00:30 U Cannabinoids Screen Pos (Neg) H 05/05/18 00:30 Serum Alcohol Less than 3 mg/dL (0-5) 05/04/18 23:50 Hepatitis A IgM Ab Nonreactive (Nonreactive) 05/10/18 17:08 Hep Bs Antigen Nonreactive (Nonreactive) 05/10/18 17:08 Hep B Core IgM Ab Nonreactive (Nonreactive) 05/10/18 17:08 Hep C IgG Ab Nonreactive (Nonreactive) 05/10/18 17:08 H.influenzae Type B Ag Not detected (Not Detected) 05/05/18 05:15 N. meningitidis C/W 135 Not detected (Not Detected) 05/05/18 05:15 Group B Strep Antigen Not detected (Not Detected) 05/05/18 05:15 S. pneumoniae Antigen Not detected (Not Detected) 05/05/18 05:[address] 05/05/18 00:00 CONCLUSION: No evidence of acute intracranial pathology. No masses are identified. . Abdomen/Pelvis CT 05/05/18 00:59 CONCLUSION: No evidence of acute abdominal or pelvic process. No masses are identified. Chest CT 05/05/18 00:59 CONCLUSION: Left lower lobe atelectasis versus contusion. There is no evidence of pneumothorax. Chest X-Ray 05/05/18 01:30 CONCLUSION: Satisfactory position of endotracheal tube as above. Left lower lobe atelectasis versus contusion Labs on day of discharge: Labs from last 24 hours 05/13/18 05/13/18 06:49 06:49 WBC 5.4 RBC 3.95 L Hgb 12.6 L Hct 36.0 L MCV 91.1 MCH 31.8 MCHC 34.9 RDW 14.5 Plt Count 322 MPV 7.5 Neut % (Auto) 39.2 Lymph % (Auto) 41.0 Marshall % (Auto) 16.7 H Eos % (Auto) 1.9 Baso % (Auto) 1.2 Neut # (Auto) 2.1 Lymph # (Auto) 2.2 Marshall # (Auto) 0.9 Eos # (Auto) 0.1 Baso # (Auto) 0.1 WBC Differential . Differential Comment Auto diff final Sodium 137 Potassium 3.8 Chloride 97 L Carbon Dioxide 33.2 H Anion Gap 7 BUN 8 Creatinine 0.70 Estimated GFR Greater than 89 Random Glucose 87 Calcium 8.6 Phosphorus 3.4 Magnesium 1.8 Total Bilirubin 0.3 AST 123 H ALT 194 H Alkaline Phosphatase 75 Total Creatine Kinase 2723 H CK-MB (CK-2) 2.6 CK-MB (CK-2) % 0.1 Total Protein 7.4 Albumin 3.0 L - Impressions ITS Impressions Head CT 05/05/18 00:00 CONCLUSION: No evidence of acute intracranial pathology. No masses are identified. . Abdomen/Pelvis CT 05/05/18 00:59 CONCLUSION: No evidence of acute abdominal or pelvic process. No masses are identified. Chest CT 05/05/18 00:59 CONCLUSION: Left lower lobe atelectasis versus contusion. There is no evidence of pneumothorax. Chest X-Ray 05/05/18 01:30 CONCLUSION: Satisfactory position of endotracheal tube as above. Left lower lobe atelectasis versus contusion Discharge Plan - Discharge Disposition Patient Disposition: 01 Discharge Home - Discharge Condition Condition: Good - Discharge Order Discharge Orders: Discharge Order (Routine); Ordered 05/13/18 Ordered By: Bertrand Viera - Discharge Details Anticipated Discharge Date: 05/13/18 Discharge Comment: DC TO HOME TODAY - Physicians Team Primary Care Provider: UNKNOWN, Attending Provider: Bertrand Viera Other Providers: Angelo Smith MD ; Coni Pike MD
== END 2018-05-13 14:40 | disposition home or self-care (01) ==
LOC: NEPE 23:41 → NEDA 05-05 02:55 → EDBD 05-05 02:55 → N03 05-05 06:36 → N07 05-09 15:07
PROVIDERS: ADMIT Hospitalist; ATTEND Hospitalist